=== PATIENT | male | born 1965 | race African-American/Black ===

== ENCOUNTER 2019-02-09 13:45 | Inpatient (IN) | payer OTHER, SELFPAY ==
[2019-02-09 14:31] LABS: #Lymphocytes 1.2 thou/uL (1.20-3.40); #Monocytes 0.4 thou/uL (0.11-0.59); #Neutrophils 4.5 thou/uL (1.40-6.50); %Basophils 0.7 % (0.0-1.0); %Eosinophils 0.7 % (0.0-10.0); %Lymphocytes 20.2 % (21.0-51.0); %Neutrophils 72.3 % (42.0-75.0); Hemoglobin 13.2 g/dL (14.0-18.0); Mean Corpuscular HGB CONC 32.1 g/dL (32.0-36.0); Mean Corpuscular Hemoglobin 31.8 pg (27.0-31.0); Mean Corpuscular Volume 99.1 fL (78.0-98.0); Platelet Count 179 thou/uL (130-400); RBC Distribution Width 13.2 % (11.5-14.5); Red Blood Cell (RBC) Count 4.15 mill/uL (4.70-6.10); White Blood Cell (WBC) Count 6.2 thou/uL (4.8-10.8)
[2019-02-09 14:51] LABS: ALT (SGPT) 30 U/L (8-55); AST (SGOT) 29 U/L (5-34); Albumin 3.8 g/dL (3.5-5.0); Alkaline Phosphatase 83 U/L (40-150); Anion Gap 12 mmol/L (10-20); BUN (Urea Nitrogen) 20 mg/dL (8.4-25.7); Bilirubin, Total 1.5 mg/dL (0.2-1.2); Calc. Creatinine Clearance 0 mL/min (70-130); Calcium 9.1 mg/dL (7.8-10.44); Carbon Dioxide 25 mmol/L (22-29); Chloride 108 mmol/L (98-107); Estimated GFR-MDRD 53; Globulin 3.4 g/dL (2.4-3.5); Glucose 134 mg/dL (70-105); Potassium 3.3 mmol/L (3.5-5.1); Protein, Total 7.2 g/dL (6.0-8.3); Sodium 142 mmol/L (136-145)
[2019-02-09 15:59] LABS: CKMB 4.6 ng/mL (0-6.6)
[2019-02-09] MEDS ORDERED: Aspirin 325 MG TAB ONE (16:02)
[2019-02-09] MEDS ORDERED: Ondansetron PF 4 MG/2 ML Vial IVP PRN (20:10)
[2019-02-09] MEDS ORDERED: Sodium Chloride 0.9% 1,000 ML IV SCH (20:45)
[2019-02-09] MEDS: Labetalol HCl 100 MG/20 ML VIAL SLOW IVP PRN (20:53)
[2019-02-09] MEDS: Famotidine 20 MG TAB PO SCH (20:55)
--- NOTE | 2019-02-09 22:28 | RAD ---
PORTABLE CHEST: 02/09/19 HISTORY: Decreased breath sounds right lower lobe. The heart size is enlarged. Mediastinal structures are unremarkable. The lungs appear clear of any de finite infiltrative process. IMPRESSION: Mild cardiomegaly. POS: OFF
--- NOTE | 2019-02-09 23:10 | CT ---
CT OF BRAIN PERFORMED WITHOUT CONTRAST ENHANCEMENT: 02/09/19 HISTORY: Syncope, dizziness, unsteady gait, hypertension. The ventricular and cisternal system is within normal limits. There is no signs of intracerebral hemo rrhage or extra-axial fluid collections. Mastoid air cells are clear. There is some mucosal change within the right sphenoid as well as some m inimal ethmoid and maxillary sinus mucosa change. IMPRESSION: No acute intracranial abnormalities. POS: OFF
[2019-02-10 00:10] LABS: Troponin I 0.068 ng/mL (< 0.028)
[2019-02-10] MEDS ORDERED: Furosemide 40 MG/4 ML VIAL SLOW IVP SCH (00:45)
[2019-02-10] MEDS: Nitroglycerin 2% Ointment 1 INCH/1 GM Packet TOP SCH ×3 (01:03→17:45)
--- NOTE | 2019-02-10 01:09 | HP ---
CHIEF COMPLAINT: Dizziness, near syncope, nausea and vomiting x1. HISTORY OF PRESENT ILLNESS: The patient is a pleasant 53-year-old male with no past medical history, who presented to the hospital with the above complaints after working outside for several hours. 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 This morning, he needed to drive to [employer] for some work, he did have four cups of coffee, which is unusual for him, and drove back to [facility] from [place] to continue working. After working outside for several hours, digging a grave and trying to set up a tent, the patient felt very dizzy and as if he might pass out. He states that he felt very wobbly on his feet. He became nauseated and did have an episode of emesis x1. He does also report that he feels somewhat short of breath. On arrival to the hospital, blood pressure was significantly elevated at a reading of 218/146. His pulse is 97. Lab work significant for creatinine of 1.66, bilirubin of 1.5, creatine kinase of 298, and troponin of 0.089. His EKG showed sinus rhythm with no acute ST or T-wave changes. The patient has denied any chest pain or palpitations. He is feeling improved after Zofran and IV fluid resuscitation, but states that he does feel dizzy when he stands up and has some continued shortness of breath. The patient does not have any medical history as he has not sought medical care or seen a doctor prior to this. REVIEW OF SYSTEMS: 12-point review of systems performed and is negative except that stated above. The patient denies any recent illnesses, cough, or fevers. No sick contacts. No diarrhea. No blood in urine or stool. ALLERGIES: NO KNOWN DRUG ALLERGIES. HOME MEDICATIONS: The patient takes no home medications. PAST SURGICAL HISTORY: The patient states that at one time, he had a small metal object removed from his leg after working with equipment out in the yard. Otherwise, no major surgeries. SOCIAL HISTORY: The patient smoked for 28 years and has been trying to wean down. He states he has not had a cigarette in 2 days. He denies any alcohol or illicit drug use. FAMILY HISTORY: Significant for a CVA in his brother. He states that his son of "enlarged heart." PHYSICAL EXAMINATION: VITAL SIGNS: Blood pressure 179/133, pulse is 90, respirations 20, and O2 saturation is 98% on room air. GENERAL: The patient is a well-appearing 53-year-old male, in no acute distress. HEENT: Head is atraumatic and normocephalic. Mucous membranes are moist. NECK: No JVD. Trachea is midline. CV: S1 and S2. Regular rate and rhythm. No appreciable murmurs, rubs, or gallops. LUNGS: Regular respiratory rate and pattern. Diminished breath sounds at the bases. ABDOMEN: Positive bowel sounds. Soft, nontender. EXTREMITIES: No edema. Extremities are warm and well perfused. NEUROLOGIC: Cranial nerves 2 through 12 are grossly intact. The patient has no focal deficits. LABORATORY DATA: White blood cell count 6.2, hemoglobin 13.2, hematocrit 41.1, and platelet count is 179. Sodium 142, potassium 3.3, chloride 108, BUN 20, and creatinine 1.66. AST, ALT, and alkaline phosphatase all within normal limits. Creatine kinase 298. Troponin 0.089. ASSESSMENT: 1. Near syncope with nausea and emesis x1, along with sob. Unclear etiology, differential includes mild dehydration, although certainly hypertension could be playing a role in some of his symptoms. 2. Acute kidney injury, secondary to above, although baseline creatinine is unknown. He does have untreated hypertension, mild anemia, which points towards chronic kidney disease. 3. Accelerated hypertension with demand ischemia/indeterminate troponin. 4. Shortness of breath, persistent, new onset 5. History tobacco abuse PLAN: The patient's chest x-ray did not show any infiltrates; however, he did have cardiomegaly noted. Given his near syncope and indeterminate troponin, we will obtain an echocardiogram along with carotid Dopplers. We will continue to trend troponin. His shortness of breath appears new onset and persistent; I have ordered both D-dimer and BNP which are pending at the time of dictation. We will repeat labs in the morning including a fasting lipid panel. Regarding the patient's hypertension, I have started nifedipine, and we will continue p.r.n. labetalol. Further recommendations based on findings of noninvasive testing and hospital course. Job ID: [id number] MTDD
[2019-02-10 01:44] LABS: Amphetamine Not Detected (NotDetected); Barbiturates Screen Not Detected (NotDetected); Benzodiazepine Screen Not Detected (NotDetected); Cocaine Metabolite Screen Not Detected (NotDetected); Medtox Reader # READER 4; Methadone Not Detected (NotDetected); Methamphetamine Not Detected (NotDetected); Opiate Screen Not Detected (NotDetected); Oxycodone Screen Not Detected (NotDetected); Phencyclidine (PCP) Not Detected (NotDetected); THC/Cannabinoid Screen Detected (NotDetected); Tricyclic Screen Not Detected (NotDetected)
[2019-02-10 01:45] LABS: Medtox Control Line Valid? VALID (VALID)
[2019-02-10] MEDS: Labetalol HCl 100 MG/20 ML VIAL SLOW IVP PRN ×2 (01:48→12:00)
[2019-02-10] MEDS ORDERED: Potassium Chloride 20 MEQ TAB PO SCH ×2 (02:00→23:30)
[2019-02-10 03:38] LABS: Troponin I 0.086 ng/mL (< 0.028)
[2019-02-10 03:50] LABS: Anion Gap 12 mmol/L (10-20); BUN (Urea Nitrogen) 21 mg/dL (8.4-25.7); Calc. Creatinine Clearance 97 mL/min (70-130); Calcium 8.9 mg/dL (7.8-10.44); Carbon Dioxide 22 mmol/L (22-29); Cardiac Risk 4.6 (Less than 4.5); Chloride 109 mmol/L (98-107); Cholesterol 133 mg/dl (< 200 Desired); Estimated GFR-MDRD 61; Glucose 134 mg/dL (70-105); HDL Cholesterol 29 mg/dL (>60 Neg Risk); LDL Cholesterol, Calculated 77 mg/dL; Potassium 3.2 mmol/L (3.5-5.1); Sodium 140 mmol/L (136-145); Triglycerides 135 mg/dL (Less than 150)
--- NOTE | 2019-02-10 03:52 | PDOC.EVN ---
Event Note - Event Note Event Note: BNP >2000, will start IV diuresis. D dimer 1.96, have also ordered CTA. Care discussed with Dr. Silver.
[2019-02-10] MEDS: Furosemide 40 MG/4 ML VIAL SLOW IVP SCH ×2 (05:46→14:48)
--- NOTE | 2019-02-10 07:39 | CT ---
PRELIMINARY REPORT/[facility]/EMERGENCY AFTER HOURS PROCEDURE EXAM: CT Angiography Chest With Contrast EXAM DATE/TIME: 02/10/2019 2:37 AM CLINICAL HISTORY: 53 years old, male; Dyspnea; Patient HX: Elevated d-dimer of 1.96, patient complains of SOB, no surgi rocio HX to chest. HTN. TECHNIQUE: Imaging protocol: Axial computed tomographic angiography images of the chest with intravenous contras t using CT angiography protocol. Coronal and sagittal reformatted images were created and reviewed. 3D rendering: MIP reconstructed images were created and reviewed. COMPARISON: No relevant prior studies available. FINDINGS: Pulmonary arteries: There is no evidence of peripheral filling defects within the pulmonary arterial circulation to suggest pulmonary embolism. Aorta: Unremarkable. No aortic aneurysm. No aortic dissection. Thyroid: The visualized thyroid gland is unremarkable. Lungs: Unremarkable. No consolidation. No masses. Pleural space: There are trace bilateral pleural effusions with dependent atelectasis. Heart: Unremarkable. No cardiomegaly. No pericardial effusion. Mediastinum: The trachea is normal. Kidneys and ureters: There is pericholecystic fluid and perinephric stranding which are incompletely evaluated on current exam. Lymph nodes: Unremarkable. No enlarged lymph nodes. Bones/joints: Unremarkable. No acute fracture. Soft tissues: Unremarkable. IMPRESSION: 1. There is no CT evidence of acute pulmonary embolism. 2. There is pericholecystic fluid and perinephric stranding which are incompletely evaluated on curre nt exam. Consider CT abdomen for further evaluation if clinically warranted. Thank you for allowing us to participate in the care of your patient. Dictated and Authenticated by: Hakeem Lopez MD 02/10/2019 3:17 AM Central Time ([place] & [place]) FINAL REPORT CTA CHEST: FINDINGS/IMPRESSION: I agree with the findings and impression given in the preliminary report, per [facility] physician. No evidence of pulmonary thromboembolism. POS: [facility] [place]
--- NOTE | 2019-02-10 07:57 | ULT ---
EXAM: Carotid ultrasound HISTORY: Syncope COMPARISON: None TECHNIQUE: Multiplanar grayscale and color Doppler images were obtained in a carotid ultrasound. Spec tral analysis of the Doppler waveforms were performed. FINDINGS: No significant plaque is visualized in either internal carotid artery. No significant plaque is seen in either common carotid artery. The Doppler waveforms are normal in the visualized vessels. Peak systolic velocity in the right internal carotid artery 31 cm/s. Peak systolic velocity in the right common carotid artery 52 cm/s. The right ICA/CCA ratio is 0.6. Peak systolic velocity in the left internal carotid artery 35 cm/s. Peak systolic velocity in the left common carotid artery 55 cm/s. The left ICA/CCA ratio is 0.6. Both vertebral arteries demonstrate antegrade flow without focal stenosis IMPRESSION: No evidence of hemodynamically significant stenosis.
[2019-02-10] MEDS: Potassium Chloride 20 MEQ TAB PO SCH ×2 (08:22→17:45)
[2019-02-10] MEDS: Famotidine 20 MG TAB PO SCH ×2 (08:23→20:34)
[2019-02-10] MEDS ORDERED: NIFEdipine XL 30 MG TAB PO SCH (09:00)
[2019-02-10] MEDS ORDERED: Enoxaparin Sodium 40 MG/0.4 ML SYRINGE SC SCH (09:00)
[2019-02-10] MEDS ORDERED: ISOVUE-370 76%-LOCM 1 ML ONE (10:16)
[2019-02-10] MEDS: Acetaminophen 325 MG TAB PO PRN ×2 (13:30→23:34)
--- NOTE | 2019-02-10 14:23 | PDOC.PN ---
- Subjective Encounter Start Date: 02/10/19 Encounter Start Time: 11:15 Subjective: Patient examined today, no overnight events -: Denies complaints - Objective Resuscitation Status - Order Detail: 02/09/19 20:10 Resuscitation Status Routine Co-Sign Provider: Resuscitation Status: FULL: Full Resuscitation Vital Signs & Weight: Vital Signs (12 hours) Temp Pulse Resp BP BP BP BP 02/10/19 13:36 88 22 H 183/130 H 02/10/19 12:26 179/120 H 02/10/19 12:00 88 185/115 H 02/10/19 11:43 97.7 F 88 18 183/130 H 02/10/19 08:22 80 02/10/19 07:13 97.5 F L 80 16 178/127 H 184/135 H 02/10/19 04:20 80 20 165/111 H BP Pulse Ox 02/10/19 13:36 02/10/19 12:26 02/10/19 12:00 02/10/19 11:43 96 02/10/19 08:22 02/10/19 07:13 175/125 H 98 02/10/19 04:20 97 Weight Weight 115.031 kg I&O: 02/09/19 02/10/19 02/11/19 06:59 06:59 06:59 Intake Total 250 Output Total 2475 Balance -2225 Result Diagrams: 02/09/19 14:12 02/10/19 03:05 Phys Exam - Physical Examination HEENT: PERRLA, moist MMs Neck: no nodes, no JVD, supple Respiratory: no wheezing, clear to auscultation bilateral scattered crackles in bases Cardiovascular: RRR Gastrointestinal: soft, non-tender Musculoskeletal: pulses present Neurological: non-focal, normal sensation, moves all 4 limbs Lymphatic: no nodes Psychiatric: normal affect, A&O x 3 Skin: no rash, cap refill <2 seconds Dx/Plan - Plan Awaiting ECHO results, BNP over 1999 -: Patient with HTN despite multiple medications -: Has not taken any HTN meds so we will work on slowly -: decreasing SBP, Carotid U/S neg for stenosis -: Will recheck labs, monitor BP * . Review of Systems - Medications/Allergies Allergies/Adverse Reactions: Allergies Allergy/AdvReac Type Severity Reaction Status Date / Time No Known Allergies Allergy Verified 02/09/19 19:43 Medications: Current Medications Acetaminophen (Tylenol) 650 mg PO Q4H PRN PRN Reason: Headache/Fever/Mild Pain (1-3) Last Admin: 02/10/19 13:30 Dose: 650 mg Famotidine (Pepcid) 20 mg PO BID [facility] Last Admin: 02/10/19 08:23 Dose: 20 mg Furosemide (Lasix) 40 mg SLOW IVP 0600,1400 [facility] Last Admin: 02/10/19 05:46 Dose: 40 mg Labetalol HCl (Normodyne) 20 mg SLOW IVP Q4H PRN PRN Reason: SBP > 180 and HR >/= 70 Last Admin: 02/10/19 12:00 Dose: 20 mg Nifedipine (Procardia Xl) 30 mg PO DAILY [facility] Last Admin: 02/10/19 08:22 Dose: 30 mg Nitroglycerin (Nitro-Bid 2% Ointment) 1 inch TOP 0200,1000,1800 [facility] Last Admin: 02/10/19 10:17 Dose: 1 inch Ondansetron HCl (Zofran) 4 mg IVP Q6H PRN PRN Reason: Nausea/Vomiting Potassium Chloride (K-Dur) 20 meq PO BID-[facility] Last Admin: 02/10/19 08:22 Dose: 20 meq
[2019-02-10] MEDS ORDERED: Carvedilol 6.25 MG TAB PO SCH (15:15)
[2019-02-10] MEDS: Carvedilol 6.25 MG TAB PO SCH (17:44)
[2019-02-10 21:55] LABS: Potassium 3.4 mmol/L (3.5-5.1)
[2019-02-11] MEDS: Nitroglycerin 2% Ointment 1 INCH/1 GM Packet TOP SCH ×3 (03:07→17:15)
[2019-02-11 05:19] LABS: Anion Gap 13 mmol/L (10-20); BUN (Urea Nitrogen) 19 mg/dL (8.4-25.7); Calc. Creatinine Clearance 91 mL/min (70-130); Calcium 8.8 mg/dL (7.8-10.44); Carbon Dioxide 26 mmol/L (22-29); Chloride 103 mmol/L (98-107); Estimated GFR-MDRD 62; Glucose 154 mg/dL (70-105); Potassium 3.4 mmol/L (3.5-5.1); Sodium 139 mmol/L (136-145)
[2019-02-11] MEDS: Furosemide 40 MG/4 ML VIAL SLOW IVP SCH ×2 (06:19→14:22)
[2019-02-11] MEDS: Famotidine 20 MG TAB PO SCH ×2 (08:22→20:56)
[2019-02-11] MEDS: Potassium Chloride 20 MEQ TAB PO SCH ×2 (08:22→17:15)
[2019-02-11] MEDS: Carvedilol 6.25 MG TAB PO SCH ×2 (08:22→17:14)
--- NOTE | 2019-02-11 11:20 | EKG ---
Test Reason : Blood Pressure : / mmHG Vent. Rate : 094 BPM Atrial Rate : 094 BPM P-R Int : 182 ms QRS Dur : 086 ms QT Int : 406 ms P-R-T Axes : 055 -36 076 degrees QTc Int : 507 ms Normal sinus rhythm with sinus arrhythmia Left atrial enlargement Left axis deviation Nonspecific T wave abnormality Prolonged QT Abnormal ECG Confirmed by ARPITA EDEN DO ([id number]), rewrite editor RICK ANDERSON ([id number]) on 02/11/2019 11:20:18 AM Referred By: Confirmed By:ARPITA EDEN DO
--- NOTE | 2019-02-11 11:29 | ULT ---
EXAM: Right upper quadrant ultrasound PROVIDED CLINICAL HISTORY: Right upper quadrant pain COMPARISON: None FINDINGS: Visualized portions of the pancreas, IVC and aorta appear normal. Liver demonstrates no mass or intra hepatic biliary ductal dilatation. Common duct is nondilated. Gallbladder demonstrates no stones, wall thickening or pericholecystic fluid. Kidneys demonstrate no hydronephrosis or solid mass. Spleen is not enlarged and demonstrates no focal abnormality. IMPRESSION: Unremarkable right upper quadrant ultrasound.
[2019-02-11] MEDS: Acetaminophen 325 MG TAB PO PRN (14:22)
--- NOTE | 2019-02-11 15:12 | PDOC.PN ---
- Subjective Encounter Start Date: 02/11/19 Encounter Start Time: 11:00 Subjective: Examined patient, denies any new complaints - Objective Resuscitation Status - Order Detail: 02/09/19 20:10 Resuscitation Status Routine Co-Sign Provider: Resuscitation Status: FULL: Full Resuscitation Vital Signs & Weight: Vital Signs (12 hours) Temp Pulse Resp BP Pulse Ox 02/11/19 11:20 97.9 F 88 20 173/119 H 98 02/11/19 07:22 98.3 F 89 20 169/115 H 97 02/11/19 03:07 98.7 F 87 16 142/104 H 96 Weight Weight 106.957 kg I&O: 02/10/19 02/11/19 02/12/19 06:59 06:59 06:59 Intake Total 250 524 Output Total 2779 3739 Balance -4632 -7995 Result Diagrams: 02/09/19 14:12 02/11/19 04:30 Phys Exam - Physical Examination HEENT: PERRLA, moist MMs Neck: no nodes, no JVD Respiratory: no wheezing Cardiovascular: RRR, no significant murmur Gastrointestinal: soft, non-tender Musculoskeletal: pulses present Neurological: non-focal, normal sensation Lymphatic: no nodes Psychiatric: normal affect, A&O x 3 Skin: cap refill <2 seconds Dx/Plan (1) New onset of congestive heart failure Code(s): I50.9 - HEART FAILURE, UNSPECIFIED Status: Acute (2) Hypertension Code(s): I10 - ESSENTIAL (PRIMARY) HYPERTENSION Status: Acute (3) Syncope Code(s): R55 - SYNCOPE AND COLLAPSE Status: Acute (4) Acute kidney failure Status: Acute (5) Hypokalemia Code(s): E87.6 - HYPOKALEMIA Status: Acute - Plan cont current plan of care Cardiology consult, Echo with EF 10-15% -: Education given on HF, asked nurses to give patient binder -: ESSIE has improved, patient is on KCL supplements -: Will continue to monitor, recheck labs in AM * . Review of Systems - Review of Systems Constitutional: malaise - Medications/Allergies Allergies/Adverse Reactions: Allergies Allergy/AdvReac Type Severity Reaction Status Date / Time No Known Allergies Allergy Verified 02/09/19 19:43 Medications: Current Medications Acetaminophen (Tylenol) 650 mg PO Q4H PRN PRN Reason: Headache/Fever/Mild Pain (1-3) Last Admin: 02/11/19 14:22 Dose: 650 mg Carvedilol (Coreg) 6.25 mg PO BID-[facility] Last Admin: 02/11/19 08:22 Dose: 6.25 mg Famotidine (Pepcid) 20 mg PO BID [facility] Last Admin: 02/11/19 08:22 Dose: 20 mg Furosemide (Lasix) 40 mg SLOW IVP 0600,1400 [facility] Last Admin: 02/11/19 14:22 Dose: 40 mg Labetalol HCl (Normodyne) 20 mg SLOW IVP Q4H PRN PRN Reason: SBP > 180 and HR >/= 70 Last Admin: 02/10/19 12:00 Dose: 20 mg Nitroglycerin (Nitro-Bid 2% Ointment) 1 inch TOP 0200,1000,1800 [facility] Last Admin: 02/11/19 10:51 Dose: 1 inch Ondansetron HCl (Zofran) 4 mg IVP Q6H PRN PRN Reason: Nausea/Vomiting Potassium Chloride (K-Dur) 20 meq PO BID-[facility] Last Admin: 02/11/19 08:22 Dose: 20 meq
[2019-02-11] MEDS ORDERED: Carvedilol 6.25 MG TAB PO SCH (18:45)
--- NOTE | 2019-02-11 19:36 | CON ---
DATE OF CONSULTATION: HISTORY OF PRESENT ILLNESS: Mo Bunch is a pleasant 53-year-old black male with essentially no prior medical history, who presented to the hospital after working outside for several hours with dizziness and near syncope. He never had a true syncopal episode, but felt extremely weak and felt as if he would fall. He did have nausea and vomiting x1. He denied any chest discomfort or shortness of breath with that. He does give a history of episodes of PND over the last month and mild peripheral edema. Also, 2 to 3 months ago, he had a very severe upper respiratory infection that most of the people in his family also caught and he was sick with that for a long period of time. His blood pressure had been quite elevated since being here, and he has been diuresed and placed on carvedilol. PAST MEDICAL HISTORY: He denies any history of hypertension, diabetes, or hypercholesterolemia. MEDICATIONS: None. ALLERGIES: NONE. PAST SURGICAL HISTORY: Removal of metal object from his leg after working with equipment in the yard. SOCIAL HISTORY: He smoked for 28 years, but he has continued to try to wean down, and he has not smoked for 4 to 5 days. He denies any alcohol or illicit drug use. FAMILY HISTORY: Son of "an enlarged heart". REVIEW OF SYSTEMS: Twelve-point review of systems is otherwise unremarkable. PHYSICAL EXAMINATION: VITAL SIGNS: Blood pressure 169/113, pulse of 94 (this is after 24 hours of carvedilol 6.25 b.i.d.). HEENT: PERRL. NECK: Supple. CHEST: Clear. CARDIAC: S1 and S2 are normal without any S3, S4, or murmurs. ABDOMEN: Normal bowel sounds without tenderness. EXTREMITIES: Revealed no clubbing, cyanosis, or edema. NEUROLOGIC: Grossly intact. SKIN: Warm and dry. LABORATORY DATA: EKG revealed left atrial enlargement, left axis deviation, nonspecific T-wave changes. His only arrhythmia is 1 triplet at 150 per minute. Echocardiogram revealed moderate concentric left ventricular hypertrophy, severe left ventricular dysfunction with ejection fraction of 10% to 15%, mild right ventricular enlargement, moderate left atrial enlargement, moderate mitral regurgitation, moderate to severe tricuspid regurgitation, and moderate pulmonic regurgitation. Hemoglobin 13.2, hematocrit 41.1, white count 6200, platelets 179,000. D-dimer 1.96. Sodium 139, potassium 3.4, chloride 103, carbon dioxide 26, BUN 19, creatinine 1.46. Troponin I 0.089. BNP 2037.3. Cholesterol 133, triglycerides 135, HDL 29, LDL 77. CK 298. CK-MB 4.6. IMPRESSION: 1. Severe cardiomyopathy with ejection fraction 10% to 15%. He does have left ventricular hypertrophy. However, he states in the past his blood pressure has always been low. He did have a severe upper respiratory infection 2 to 3 months ago and this certainly may represent a viral cardiomyopathy. 2. Renal insufficiency. 3. Hypertension. 4. Smoker. PLAN: His blood pressure continues to be significantly elevated, and carvedilol will be increased to 12.5 mg b.i.d. I will avoid BRETT and ARB drugs with his renal insufficiency, and instead BiDil would probably be a better alternative for better blood pressure control. He will continue to be diuresed and consideration will be given to cardiac catheterization in the next 2 to 3 days to exclude coronary artery disease as an etiology of his cardiomyopathy. Also, consideration will be given to LifeVest at the time of discharge. Job ID: [id number] [facility] HEALTH SYSTEMNkechi
[2019-02-12] MEDS: Nitroglycerin 2% Ointment 1 INCH/1 GM Packet TOP SCH ×2 (01:55→10:02)
[2019-02-12] MEDS: Acetaminophen 325 MG TAB PO PRN (01:56)
[2019-02-12] MEDS: Furosemide 40 MG/4 ML VIAL SLOW IVP SCH ×2 (05:13→13:10)
[2019-02-12 05:29] LABS: Anion Gap 14 mmol/L (10-20); BUN (Urea Nitrogen) 23 mg/dL (8.4-25.7); Calc. Creatinine Clearance 95 mL/min (70-130); Calcium 8.8 mg/dL (7.8-10.44); Carbon Dioxide 24 mmol/L (22-29); Chloride 104 mmol/L (98-107); Estimated GFR-MDRD 64; Glucose 118 mg/dL (70-105); Potassium 3.5 mmol/L (3.5-5.1); Sodium 138 mmol/L (136-145)
[2019-02-12] MEDS ORDERED: Sodium Chloride 0.9% 10 ML ONE (08:17)
[2019-02-12] MEDS: Carvedilol 6.25 MG TAB PO SCH ×2 (08:27→16:18)
[2019-02-12] MEDS: Famotidine 20 MG TAB PO SCH ×2 (08:27→20:01)
[2019-02-12] MEDS: Potassium Chloride 20 MEQ TAB PO SCH ×2 (08:27→16:18)
--- NOTE | 2019-02-12 13:31 | PDOC.PN ---
- Subjective Encounter Start Date: 02/12/19 Encounter Start Time: 10:30 Subjective: Patient examined, denies new complaints. - Objective Resuscitation Status - Order Detail: 02/09/19 20:10 Resuscitation Status Routine Co-Sign Provider: Resuscitation Status: FULL: Full Resuscitation Vital Signs & Weight: Vital Signs (12 hours) Temp Pulse Resp BP BP BP BP 02/12/19 12:25 97.9 F 84 17 173/106 H 02/12/19 10:01 166/97 H 02/12/19 09:15 168/98 H 02/12/19 08:27 162/115 H 02/12/19 08:20 98.2 F 84 17 162/115 H 02/12/19 03:39 98.8 F 88 18 163/101 H Pulse Ox 02/12/19 12:25 98 02/12/19 10:01 02/12/19 09:15 02/12/19 08:27 02/12/19 08:20 97 02/12/19 03:39 98 Weight Weight 109.061 kg I&O: 02/11/19 02/12/19 02/13/19 06:59 06:59 06:59 Intake Total 524 Output Total 4100 550 Balance -3576 -550 Result Diagrams: 02/09/19 14:12 02/12/19 04:44 Phys Exam - Physical Examination HEENT: PERRLA, moist MMs Neck: no nodes, no JVD Respiratory: clear to auscultation bilateral Cardiovascular: RRR Gastrointestinal: soft, non-tender Musculoskeletal: no edema Neurological: non-focal, normal sensation Lymphatic: no nodes Psychiatric: normal affect, A&O x 3 Skin: cap refill <2 seconds Dx/Plan (1) New onset of congestive heart failure Code(s): I50.9 - HEART FAILURE, UNSPECIFIED Status: Acute (2) Hypertension Code(s): I10 - ESSENTIAL (PRIMARY) HYPERTENSION Status: Acute (3) Syncope Code(s): R55 - SYNCOPE AND COLLAPSE Status: Acute (4) Acute kidney failure Status: Acute (5) Hypokalemia Code(s): E87.6 - HYPOKALEMIA Status: Acute - Plan Patient is scheduled for a heart cath tomorrow -: Discussion within Dr. Bray's note about a lifevest -: Will continue to monitor, will recheck renal function in am * .
[2019-02-12] MEDS: Isosorbide Dinitrate 20 MG TAB PO SCH (17:30)
[2019-02-12] MEDS: hydrALAZINE 25 MG TAB PO SCH (17:30)
[2019-02-13] MEDS: Furosemide 40 MG/4 ML VIAL SLOW IVP SCH ×2 (05:32→13:06)
[2019-02-13 05:52] LABS: Anion Gap 14 mmol/L (10-20); BUN (Urea Nitrogen) 27 mg/dL (8.4-25.7); Calc. Creatinine Clearance 86 mL/min (70-130); Calcium 9.5 mg/dL (7.8-10.44); Carbon Dioxide 27 mmol/L (22-29); Chloride 102 mmol/L (98-107); Estimated GFR-MDRD 57; Glucose 107 mg/dL (70-105); Potassium 3.6 mmol/L (3.5-5.1); Sodium 139 mmol/L (136-145)
[2019-02-13] MEDS: Isosorbide Dinitrate 20 MG TAB PO SCH ×2 (08:23→21:11)
[2019-02-13] MEDS: Potassium Chloride 20 MEQ TAB PO SCH ×2 (08:23→16:10)
[2019-02-13] MEDS: Carvedilol 6.25 MG TAB PO SCH ×2 (08:23→16:10)
[2019-02-13] MEDS: hydrALAZINE 25 MG TAB PO SCH ×2 (08:24→21:12)
[2019-02-13] MEDS: Famotidine 20 MG TAB PO SCH ×2 (08:24→21:11)
--- NOTE | 2019-02-13 10:14 | PDOC.PN ---
- Subjective Encounter Start Date: 02/13/19 Encounter Start Time: 12:10 Subjective: Patient without chest pain. SOB improved. LE edema resolved. - Objective Resuscitation Status - Order Detail: 02/09/19 20:10 Resuscitation Status Routine Co-Sign Provider: Resuscitation Status: FULL: Full Resuscitation MAR Reviewed: Yes Vital Signs & Weight: Vital Signs (12 hours) Temp Pulse Resp BP BP Pulse Ox 02/13/19 08:17 98.2 F 74 16 171/111 H 98 02/13/19 03:40 98.3 F 83 22 H 167/104 H 94 L 02/12/19 23:50 98.4 F 87 24 H 158/95 H 97 Weight Weight 240 lb 7 oz I&O: 02/12/19 02/13/19 02/14/19 06:59 06:59 06:59 Intake Total 1740 Output Total 550 2560 Balance -550 -820 Result Diagrams: 02/09/19 14:12 02/13/19 04:53 Phys Exam - Physical Examination Constitutional: NAD HEENT: moist MMs Respiratory: no wheezing, no rales, no rhonchi Cardiovascular: RRR Gastrointestinal: soft, positive bowel sounds Musculoskeletal: no edema Neurological: non-focal, moves all 4 limbs Psychiatric: normal affect, A&O x 3 Dx/Plan (1) Acute systolic (congestive) heart failure Code(s): I50.21 - ACUTE SYSTOLIC (CONGESTIVE) HEART FAILURE Status: Acute Comment: EF 10-15%, moderate concentric ventricular hypertrophy, diuresing, cardiac cath planned, may need LifeVest at discharge (2) Hypertension Code(s): I10 - ESSENTIAL (PRIMARY) HYPERTENSION Status: Acute (3) Syncope Code(s): R55 - SYNCOPE AND COLLAPSE Status: Resolved (4) Hypokalemia Code(s): E87.6 - HYPOKALEMIA Status: Resolved (5) Kidney failure Status: Acute Qualifiers: Renal failure chronicity: unspecified chronicity Qualified Code(s): N19 - Unspecified kidney failure Comment: unknown baseline, stable with diuresis - Plan cont current plan of care, out of bed/ambulate, DVT proph w/SCDs likely cath tomorrow * . - Discharge Day Encounter end time: 12:20
[2019-02-13] MEDS ORDERED: Carvedilol 6.25 MG TAB PO SCH (21:00)
[2019-02-14 07:05] LABS: Anion Gap 12 mmol/L (10-20); BUN (Urea Nitrogen) 27 mg/dL (8.4-25.7); Calc. Creatinine Clearance 82 mL/min (70-130); Calcium 9.5 mg/dL (7.8-10.44); Carbon Dioxide 28 mmol/L (22-29); Chloride 102 mmol/L (98-107); Estimated GFR-MDRD 54; Glucose 118 mg/dL (70-105); Potassium 3.6 mmol/L (3.5-5.1); Sodium 138 mmol/L (136-145)
[2019-02-14] MEDS ORDERED: Communication Order-Pharmacy FS SCH (08:30)
[2019-02-14] MEDS: Furosemide 40 MG TAB PO SCH (08:53)
[2019-02-14] MEDS: Potassium Chloride 20 MEQ TAB PO SCH ×2 (08:53→16:47)
[2019-02-14] MEDS: Famotidine 20 MG TAB PO SCH ×2 (08:53→21:58)
[2019-02-14] MEDS: Isosorbide Dinitrate 20 MG TAB PO SCH ×2 (08:53→21:58)
--- NOTE | 2019-02-14 08:53 | PDOC.PN ---
- Subjective Encounter Start Date: 02/14/19 Encounter Start Time: 12:30 Subjective: Patient with no chest pain or SOB. No edema. BP still high today. - Objective Resuscitation Status - Order Detail: 02/09/19 20:10 Resuscitation Status Routine Co-Sign Provider: Resuscitation Status: FULL: Full Resuscitation MAR Reviewed: Yes Vital Signs & Weight: Vital Signs (12 hours) Temp Pulse Resp BP BP Pulse Ox 02/14/19 03:45 98 F 77 16 156/103 H 98 02/13/19 21:18 162/114 H 02/13/19 21:12 85 162/114 H Weight Weight 240 lb 7 oz I&O: 02/13/19 02/14/19 02/15/19 06:59 06:59 06:59 Intake Total 1740 1490 Output Total 2560 1775 Balance -820 -285 Result Diagrams: 02/09/19 14:12 02/14/19 06:19 Phys Exam - Physical Examination Constitutional: NAD HEENT: moist MMs Respiratory: no wheezing, no rales, no rhonchi Cardiovascular: RRR, no significant murmur Gastrointestinal: soft, positive bowel sounds Musculoskeletal: no edema Neurological: non-focal, moves all 4 limbs Psychiatric: normal affect, A&O x 3 Dx/Plan (1) Acute systolic (congestive) heart failure Code(s): I50.21 - ACUTE SYSTOLIC (CONGESTIVE) HEART FAILURE Status: Acute Comment: EF 10-15%, moderate concentric ventricular hypertrophy, diuresing, cardiac cath planned, may need LifeVest at discharge (2) Hypertension Code(s): I10 - ESSENTIAL (PRIMARY) HYPERTENSION Status: Acute Qualifiers: Hypertension type: essential hypertension Qualified Code(s): I10 - Essential (primary) hypertension Comment: uncontrolled, titrating up BP meds (3) Syncope Code(s): R55 - SYNCOPE AND COLLAPSE Status: Resolved (4) Hypokalemia Code(s): E87.6 - HYPOKALEMIA Status: Resolved (5) Kidney failure Status: Acute Qualifiers: Renal failure chronicity: unspecified chronicity Qualified Code(s): N19 - Unspecified kidney failure Comment: unknown baseline, bumped a bit so transitioning to oral diuretics - Plan cont current plan of care, DVT proph w/SCDs possibly cath tomorrow * . - Discharge Day Encounter end time: 12:40
[2019-02-14] MEDS: Sodium Chloride 0.9% 1,000 ML IV SCH ×2 (08:59→18:33)
[2019-02-14] MEDS: hydrALAZINE 25 MG TAB PO SCH ×2 (10:25→21:57)
[2019-02-14] MEDS: Carvedilol 25 MG TAB PO SCH (16:47)
[2019-02-15] MEDS: Sodium Chloride 0.9% 1,000 ML IV SCH (05:14)
[2019-02-15] MEDS: Carvedilol 25 MG TAB PO SCH ×4 (05:20→20:03)
[2019-02-15] MEDS: Isosorbide Dinitrate 20 MG TAB PO SCH ×3 (05:21→20:04)
[2019-02-15] MEDS: Potassium Chloride 20 MEQ TAB PO SCH ×2 (05:21→18:33)
[2019-02-15] MEDS: Famotidine 20 MG TAB PO SCH ×2 (05:22→20:04)
[2019-02-15] MEDS: hydrALAZINE 25 MG TAB PO SCH ×2 (05:22→20:03)
[2019-02-15 05:59] LABS: Anion Gap 13 mmol/L (10-20); BUN (Urea Nitrogen) 24 mg/dL (8.4-25.7); Calc. Creatinine Clearance 88 mL/min (70-130); Calcium 9.3 mg/dL (7.8-10.44); Carbon Dioxide 24 mmol/L (22-29); Chloride 105 mmol/L (98-107); Estimated GFR-MDRD 58; Glucose 108 mg/dL (70-105); Potassium 3.9 mmol/L (3.5-5.1); Sodium 138 mmol/L (136-145)
[2019-02-15] MEDS ORDERED: Heparin 10,000 UNITS/1 ML VIAL ONE (06:26)
[2019-02-15] MEDS ORDERED: Lidocaine 1% (PF) 30 ML VIAL ONE (06:40)
[2019-02-15] MEDS ORDERED: Fentanyl 100 MCG/2 ML VIAL ONE (07:06)
[2019-02-15] MEDS ORDERED: Midazolam HCl 2 mg/2 ml Vial ONE (07:06)
[2019-02-15] MEDS ORDERED: Protamine Sulfate 50 MG/5 ML VIAL ONE (07:26)
[2019-02-15] MEDS ORDERED: Acetaminophen/Codeine 30-300mg Tablet PO PRN ×2 (07:41)
[2019-02-15] MEDS ORDERED: Nitroglycerin 0.4 MG TAB (25 Tab Bottle) SL PRN (07:41)
[2019-02-15] MEDS ORDERED: Sodium Chloride 0.9% 200 ML IV PRN (07:41)
[2019-02-15] MEDS ORDERED: Sodium Chloride 0.9% 1,000 ML IV SCH (07:42)
--- NOTE | 2019-02-15 07:58 | PDOC.PN ---
- Subjective Encounter Start Date: 02/15/19 Encounter Start Time: 10:00 Subjective: Patient had cath this AM, minimal CAD. Sleepy post procedure. BP up today. -: New BP meds added. No CP/SOB/edema. - Objective Resuscitation Status - Order Detail: 02/09/19 20:10 Resuscitation Status Routine Co-Sign Provider: Resuscitation Status: FULL: Full Resuscitation MAR Reviewed: Yes Vital Signs & Weight: Vital Signs (12 hours) Temp Pulse Resp BP BP BP Pulse Ox 02/15/19 05:22 86 170/102 H 02/15/19 03:38 98.4 F 86 18 159/103 H 99 02/15/19 00:00 89 140/91 H 02/14/19 21:57 90 166/114 H 02/14/19 21:55 98 F 90 18 166/114 H 98 Weight Weight 240 lb 7 oz I&O: 02/14/19 02/15/19 02/16/19 06:59 06:59 06:59 Intake Total 1490 830 Output Total 1775 1100 Balance -285 -270 Result Diagrams: 02/09/19 14:12 02/15/19 05:20 Phys Exam - Physical Examination Constitutional: NAD HEENT: moist MMs Respiratory: no wheezing, no rales, no rhonchi, clear to auscultation bilateral Cardiovascular: RRR, no significant murmur Gastrointestinal: soft, non-tender, positive bowel sounds Musculoskeletal: no edema Neurological: non-focal Psychiatric: normal affect, A&O x 3 Dx/Plan (1) Acute systolic (congestive) heart failure Code(s): I50.21 - ACUTE SYSTOLIC (CONGESTIVE) HEART FAILURE Status: Acute Comment: EF 10-15%, moderate concentric ventricular hypertrophy, diuresing, cardiac cath showing minimal CAD, due to non-ischemic cardiomyopathy, may need LifeVest at discharge (2) Hypertension Code(s): I10 - ESSENTIAL (PRIMARY) HYPERTENSION Status: Acute Qualifiers: Hypertension type: essential hypertension Qualified Code(s): I10 - Essential (primary) hypertension Comment: uncontrolled, titrating up BP meds (3) Syncope Code(s): R55 - SYNCOPE AND COLLAPSE Status: Resolved (4) Hypokalemia Code(s): E87.6 - HYPOKALEMIA Status: Resolved (5) Kidney failure Status: Acute Qualifiers: Renal failure chronicity: unspecified chronicity Qualified Code(s): N19 - Unspecified kidney failure Comment: stable, unknown baseline - Plan cont current plan of care, DVT proph w/SCDs titrate BP meds, Carvediolol added, home when ok with cardiology * . - Discharge Day Encounter end time: 10:10
[2019-02-15] MEDS: Furosemide 40 MG TAB PO SCH (13:29)
[2019-02-15] MEDS: Aspirin 81 mg Enteric Coated Tablet PO SCH (13:29)
[2019-02-15] MEDS ORDERED: Atorvastatin Calcium 10 MG TAB PO SCH (21:00)
[2019-02-16 06:36] LABS: Anion Gap 11 mmol/L (10-20); BUN (Urea Nitrogen) 21 mg/dL (8.4-25.7); Calc. Creatinine Clearance 100 mL/min (70-130); Calcium 9.1 mg/dL (7.8-10.44); Carbon Dioxide 25 mmol/L (22-29); Chloride 105 mmol/L (98-107); Estimated GFR-MDRD 69; Glucose 114 mg/dL (70-105); Potassium 4.2 mmol/L (3.5-5.1); Sodium 137 mmol/L (136-145)
[2019-02-16] MEDS: Isosorbide Dinitrate 20 MG TAB PO SCH (08:19)
[2019-02-16] MEDS: Potassium Chloride 20 MEQ TAB PO SCH ×2 (08:19→17:07)
[2019-02-16] MEDS: Aspirin 81 mg Enteric Coated Tablet PO SCH (08:19)
[2019-02-16] MEDS: Furosemide 40 MG TAB PO SCH (08:19)
[2019-02-16] MEDS: hydrALAZINE 25 MG TAB PO SCH (08:19)
[2019-02-16] MEDS: Carvedilol 25 MG TAB PO SCH (08:19)
[2019-02-16] MEDS: Famotidine 20 MG TAB PO SCH (08:20)
--- NOTE | 2019-02-16 08:41 | PDOC.PN ---
- Subjective Encounter Start Date: 02/16/19 Encounter Start Time: 10:10 Subjective: Patient feeling fine. No CP. No SOB. No edema. - Objective Resuscitation Status - Order Detail: 02/09/19 20:10 Resuscitation Status Routine Co-Sign Provider: Resuscitation Status: FULL: Full Resuscitation MAR Reviewed: Yes Vital Signs & Weight: Vital Signs (12 hours) Temp Pulse Resp BP BP Pulse Ox 02/16/19 08:19 82 02/16/19 08:17 98.8 F 82 18 160/113 H 98 02/16/19 04:00 98.4 F 85 19 153/94 H 99 Weight Weight 236 lb 3.2 oz I&O: 02/15/19 02/16/19 02/17/19 06:59 06:59 06:59 Intake Total 830 1330 Output Total 1100 1800 Balance -270 -470 Result Diagrams: 02/09/19 14:12 02/16/19 05:34 Phys Exam - Physical Examination Constitutional: NAD HEENT: moist MMs Respiratory: no wheezing, no rales, no rhonchi, clear to auscultation bilateral Cardiovascular: RRR, no significant murmur Gastrointestinal: soft, non-tender, positive bowel sounds Musculoskeletal: no edema Neurological: non-focal, moves all 4 limbs Psychiatric: normal affect, A&O x 3 Dx/Plan (1) Acute systolic (congestive) heart failure Code(s): I50.21 - ACUTE SYSTOLIC (CONGESTIVE) HEART FAILURE Status: Acute Comment: EF 10-15%, moderate concentric ventricular hypertrophy, diuresing, cardiac cath showing minimal CAD, due to non-ischemic cardiomyopathy, needs LifeVest at discharge (2) Hypertension Code(s): I10 - ESSENTIAL (PRIMARY) HYPERTENSION Status: Acute Qualifiers: Hypertension type: essential hypertension Qualified Code(s): I10 - Essential (primary) hypertension Comment: uncontrolled, titrating up BP meds (3) Syncope Code(s): R55 - SYNCOPE AND COLLAPSE Status: Resolved (4) Hypokalemia Code(s): E87.6 - HYPOKALEMIA Status: Resolved (5) Kidney failure Status: Acute Qualifiers: Renal failure chronicity: unspecified chronicity Qualified Code(s): N19 - Unspecified kidney failure Comment: improving, unknown baseline - Plan cont current plan of care spoke with Dr. Bray, will increase Carvedilol and if BP improves -: later today can be discharged with LifeVest. * . - Discharge Day Encounter end time: 10:30
[2019-02-16] MEDS ORDERED: Carvedilol 25 MG TAB PO SCH ×2 (10:15→17:00)
[2019-02-16 11:48] VITALS: BP 140/94; TEMP 97.6
--- NOTE | 2019-02-17 05:24 | DIS ---
DATE OF ADMISSION: 02/09/2019 DATE OF DISCHARGE: 02/16/2019 PRIMARY CARE PHYSICIAN: Kena Lucero. REASON FOR ADMISSION: Near-syncope with acute kidney injury and accelerated hypertension. DIAGNOSES AT DISCHARGE: 1. Acute systolic congestive heart failure with an ejection fraction of 10% to 15%. 2. Hypertension. 3. Acute on chronic kidney failure, improved. PROCEDURES: 1. CT of the brain showing no acute intracranial abnormalities. 2. CT of the chest and thorax showing no evidence for pulmonary thromboembolism. 3. Echocardiogram showing an ejection fraction of 10% to 15%, moderate concentric left ventricular hypertrophy, moderate to severe tricuspid regurgitation. 4. Ultrasound of the abdomen showing an unremarkable right upper quadrant ultrasound. 5. Carotid doppler showing no evidence for hemodynamically significant stenosis. 6. Cardiac catheterization showing minimal coronary artery disease and severe nonischemic cardiomyopathy. CONSULTATIONS: Cardiology, Dr. Bray. SUMMARY OF HOSPITAL COURSE: This is a 53-year-old male without significant past medical history and has never gone to a doctor. He presented to the hospital with dizziness, near syncope, nausea, and vomiting x1 after working outside in the heat for several hours. 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 The patient was found to have severely elevated blood pressures on presentation to the ER. Also had elevated creatinine, mild elevation of bilirubin, and elevated creatine kinase. EKG was negative. He was evaluated in the emergency room and put in observation due to his near-syncope and severely elevated blood pressures. At that time, a D-dimer and BNP were done. BNP was severely elevated and the D-dimer was elevated as well. He had a CT angio with above results. The patient was given IV Lasix for diuresis and also instituted on multiple blood pressure medications. Echocardiogram was ordered, which showed above results. Dr. Bray was consulted. He continued diuresis, continued to titrating up blood pressure medicines. He then did do a cardiac catheterization to rule out coronary artery disease as a cause of the congestive heart failure. The patient's coronaries were relatively clean. Most likely, the patient's CHF is due to a long-standing hypertension or viral etiology. Eventually, his blood pressure was controlled. He was diuresed to a good dry weight and then switched over to oral Lasix. His creatinine did improve during his hospitalization. The patient did not have any further symptoms during his hospitalization and what he did was fitted with a LifeVest prior to discharge and is now being discharged home. Of note, the patient did have elevated bilirubin and so he had a right upper quadrant ultrasound that was normal as well. DISCHARGE MANAGEMENT: 1. Location: Discharged home. 2. Followup: Follow up with [facility] on February 20, with Dr. Bray on March 15 and with the [facility], outpatient. 3. Activity: As tolerated. The patient is to stay out of work until cleared by Cardiology to return and to wear his LifeVest at all times. 4. Diet: Fluid-restricted healthy heart, low-sodium diet. 5. Medications: a. Aspirin 81 mg daily, 30 tablets dispensed. b. Atorvastatin 10 mg at night, 30 tablets dispensed. c. Carvedilol 50 mg twice a day, 60 doses dispensed. d. Furosemide 40 mg daily, 30 tablets dispensed. e. Hydralazine 75 mg twice a day, 60 tablets dispensed. f. Isosorbide dinitrate 40 mg twice a day, 60 tablets dispensed. g. Potassium chloride 10 mEq daily, 30 caps dispensed. The patient was not considered on an BRETT inhibitor due to his renal failure. This can be reassessed in the future to see if he would tolerate it. Job ID: [id number]
== END 2019-02-16 18:10 | disposition home or self-care (01) | DRG 286 ==
LOC: ERS 13:45 → 2SW 17:48 → OBSVTOIN 17:48 → 2NO 02-11 19:38
PROVIDERS: ADMIT Internal Medicine; ATTEND Internal Medicine
PROC: 4A023N7 Measurement of Cardiac Sampling and Pressure, Left Heart, Percutaneous Approach (ICD-10-PCS; principal; 2019-02-14)
PROC: B211YZZ Fluoroscopy of Multiple Coronary Arteries using Other Contrast (ICD-10-PCS; 2019-02-14)
DX: I13.0 Hypertensive heart and chronic kidney disease with heart failure and stage 1 through stage 4 chronic kidney disease, or unspecified chronic kidney disease (principal); I50.21 Acute systolic (congestive) heart failure; N17.9 Acute kidney failure, unspecified; I24.8 Other forms of acute ischemic heart disease; I42.9 Cardiomyopathy, unspecified; I25.10 Atherosclerotic heart disease of native coronary artery without angina pectoris; E87.6 Hypokalemia; N18.9 Chronic kidney disease, unspecified; E78.00 Pure hypercholesterolemia, unspecified; E11.22 Type 2 diabetes mellitus with diabetic chronic kidney disease; F17.210 Nicotine dependence, cigarettes, uncomplicated; E86.0 Dehydration
CPT/HCPCS: 36415; 70450; 71045; 71275; 76700; 80048; 80053; 80061; 80306; 82550; 82553; 83690; 83735; 83880; 84484; 85025; 85347; 85379; 93005; 93306; 93458; 93798; 93880; 96360; 96361; 99152; 99153; C1769; J1644; J1940; J2001; J2250; J2720; J3010; Q9966

== ENCOUNTER 2019-04-26 05:32 | Inpatient (IN) | payer SELFPAY ==
[2019-04-26] MEDS ORDERED: niCARdipine 20MG In NaCl 20 MG/200 ML BAG ONE ×2 (06:08→08:05)
[2019-04-26 06:21] LABS: #Eosinphils 0.1 thou/uL (0.0-0.7); #Monocytes 0.6 thou/uL (0.11-0.59); #Neutrophils 2.3 thou/uL (1.40-6.50); %Basophils 0.2 % (0.0-1.0); %Eosinophils 1.7 % (0.0-10.0); %Lymphocytes 39.7 % (21.0-51.0); %Monocytes 11.3 % (0.0-10.0); Hemoglobin 14.6 g/dL (14.0-18.0); Mean Corpuscular HGB CONC 31.9 g/dL (32.0-36.0); Mean Corpuscular Hemoglobin 30.5 pg (27.0-31.0); Mean Corpuscular Volume 95.5 fL (78.0-98.0); Mean Platelet Volume 7.8 fL (7.4-10.4); Platelet Count 184 thou/uL (130-400); RBC Distribution Width 12.1 % (11.5-14.5); Red Blood Cell (RBC) Count 4.79 mill/uL (4.70-6.10)
[2019-04-26 06:47] LABS: ALT (SGPT) 19 U/L (8-55); AST (SGOT) 23 U/L (5-34); Albumin 3.9 g/dL (3.5-5.0); Alkaline Phosphatase 88 U/L (40-150); Anion Gap 11 mmol/L (10-20); BUN (Urea Nitrogen) 18 mg/dL (8.4-25.7); Bilirubin, Total 0.6 mg/dL (0.2-1.2); Calc. Creatinine Clearance 0 mL/min (70-130); Calcium 9.2 mg/dL (7.8-10.44); Carbon Dioxide 24 mmol/L (22-29); Chloride 107 mmol/L (98-107); Estimated GFR-MDRD 66; Globulin 3.6 g/dL (2.4-3.5); Glucose 102 mg/dL (70-105); Potassium 3.4 mmol/L (3.5-5.1); Protein, Total 7.5 g/dL (6.0-8.3); Sodium 139 mmol/L (136-145)
[2019-04-26] MEDS ORDERED: LABETALOL IVPB SCH (07:15)
[2019-04-26] MEDS ORDERED: D5W IVPB SCH (07:15)
[2019-04-26] MEDS ORDERED: Labetalol HCl 200 MG, Admixture Fee 1 EACH in Sodium Chloride 0.9% 250 ML 160 ML IVPB SCH (07:30)
--- NOTE | 2019-04-26 07:44 | PDOC.FPRHP ---
- History of Present Illness Chief Complaint: R-sided numbness History of Present Illness: Mr. Bunch is a pleasant 54YOM with a PMH significant for poorly controlled HTN , HFrEF and CKDIII who presented to the ED with a CC of right-sided paresthesias that began shortly after waking up around 0500 today. The patient reports he woke up at 0500 to take his AM meds and states his right leg and arm were numb and he had trouble "placing his right leg." He denies any weakness or falls was well as any associated dysarthria, headache, vision changes or chest pain. He denies any personal or FH or CVA or [place] and denies ever having had symptoms like the before. Stated he was in his usual state of health when he went to bed yesterday. ED Course: The patient was started on a cardene drip for BP control after his head CT showed an ICH. - Allergies/Adverse Reactions Allergies Allergy/AdvReac Type Severity Reaction Status Date / Time No Known Allergies Allergy Verified 04/26/19 07:55 - Home Medications Medication Instructions Recorded Confirmed Type Aspirin [Ecotrin Low Strength] 81 mg PO DAILY #30 tab 02/16/19 04/26/19 Rx Atorvastatin Calcium [Lipitor] 10 mg PO HS #30 tab 02/16/19 04/26/19 Rx Carvedilol [Coreg] 50 mg PO BID-WM #60 tab 02/16/19 04/26/19 Rx Furosemide [Lasix] 40 mg PO DAILY-AC #30 tab 02/16/19 04/26/19 Rx Isosorbide Dinitrate [Isordil] 40 mg PO BID #60 tab 02/16/19 04/26/19 Rx Potassium Chloride 10 meq PO DAILY #30 capsule.er 02/16/19 04/26/19 Rx hydrALAZINE [Apresoline] 75 mg PO BID #60 tab 02/16/19 04/26/19 Rx - History PMHx: HTN, HFrEF, CKD PSHx: none FHx: Father - HTN Social: Has smoked about 6 cigarettes/day for ~ 33 years. Denies any EtOH use. Smokes marijuana about 1x/week. No other drug use. Lives [place] and child's mother. - Review of Systems General: denies: fever/chills, fatigue Eyes: denies: eye pain, vision changes ENT: denies: nasal congestion, rhinorrhea Respiratory: denies: cough, shortness of breath Cardiovascular: denies: chest pain, edema Gastrointestinal: denies: nausea, vomiting, diarrhea, constipation, abdominal pain Genitourinary: denies: incontinence, dysuria Skin: denies: rashes, lesions Musculoskeletal: denies: pain, tenderness Neurological: reports: numbness. denies: syncope, weakness Psychological: denies: anxiety, depression - Vital signs BP: 176/99 HR: 93 RR: 21 Tmax: 97.8F Pox: 98% on RA Wt: 109 kg - Physical Exam Constitutional: NAD, awake, alert and oriented, well developed HEENT: normocephalic and atraumatic, PERRLA, EOMI, conjunctiva clear, no scleral icterus, grossly normal vision, grossly normal hearing, MMM, oropharynx clear Neck: supple, FROM Heart: RRR, normal S1/S2, no murmurs/rubs/gallops, pulses present, no edema Lungs: CTAB, no respiratory distress, good air movement, no rales/rhonchi, no wheezing, no retractions Abdomen: soft, non-tender, bowel sounds present Musculoskeletal: normal structure, normal tone, ROM grossly normal Neurological: no focal deficit, CN II-XII intact, other (2 beats of myoclonus in RLE w/ subjective decreased sensation to touch in B/L R extremities; normal cerebellar testing) Skin: no rash/lesions, good turgor, capillary refill <2 seconds, no jaundice Heme/Lymphatic: no unusual bruising or bleeding, no purpura, no petechia Psychiatric: normal mood and affect, good judgment and insight, intact recent and remote memory FMR H&P: Results - Labs Result Diagrams: 04/26/19 06:13 04/26/19 06:13 Lab results: WBC 5.0 thou/uL (4.8-10.8) 04/26/19 06:13 Hgb 14.6 g/dL (14.0-18.0) 04/26/19 06:13 Hct 45.7 % (42.0-52.0) 04/26/19 06:13 MCV 95.5 fL (78.0-98.0) 04/26/19 06:13 Plt Count 184 thou/uL (130-400) 04/26/19 06:13 Neutrophils % 47.0 % (42.0-75.0) 04/26/19 06:13 Sodium 139 mmol/L (136-145) 04/26/19 06:13 Potassium 3.4 mmol/L (3.5-5.1) L 04/26/19 06:13 Chloride 107 mmol/L (98-107) 04/26/19 06:13 Carbon Dioxide 24 mmol/L (22-29) 04/26/19 06:13 BUN 18 mg/dL (8.4-25.7) 04/26/19 06:13 Creatinine 1.37 mg/dL (0.7-1.3) H 04/26/19 06:13 Glucose 102 mg/dL (70-105) 04/26/19 06:13 Calcium 9.2 mg/dL (7.8-10.44) 04/26/19 06:13 Total Bilirubin 0.6 mg/dL (0.2-1.2) 04/26/19 06:13 AST 23 U/L (5-34) 04/26/19 06:13 ALT 19 U/L (8-55) 04/26/19 06:13 Alkaline Phosphatase 88 U/L (40-150) 04/26/19 06:13 Serum Total Protein 7.5 g/dL (6.0-8.3) 04/26/19 06:13 Albumin 3.9 g/dL (3.5-5.0) 04/26/19 06:13 - Radiology Interpretation CT scan - head Status: image reviewed by me, report reviewed by me Additional comment: intracerebral hematoma in posterior L basal ganglia/internal capsule measuring 20/14/20 mm Chest x-ray Status: image reviewed by me, report reviewed by me Additional comment: NAF FMR H&P: A/P - Problem List (1) Hemorrhagic cerebrovascular accident (CVA) Current Visit: Yes Status: Acute Code(s): I61.9 - NONTRAUMATIC INTRACEREBRAL HEMORRHAGE, UNSPECIFIED (2) Intracranial hemorrhage Current Visit: Yes Status: Acute Code(s): I62.9 - NONTRAUMATIC INTRACRANIAL HEMORRHAGE, UNSPECIFIED (3) CKD (chronic kidney disease) stage 2, GFR 60-89 ml/min Current Visit: Yes Status: Chronic Code(s): N18.2 - CHRONIC KIDNEY DISEASE, STAGE 2 (MILD) (4) Chronic HFrEF (heart failure with reduced ejection fraction) Current Visit: Yes Status: Chronic Code(s): I50.22 - CHRONIC SYSTOLIC ( CONGESTIVE) HEART FAILURE (5) Marijuana use Current Visit: Yes Status: Chronic Code(s): F12.90 - CANNABIS USE, UNSPECIFIED, UNCOMPLICATED (6) Tobacco abuse Current Visit: Yes Status: Chronic Code(s): Z72.0 - TOBACCO USE (7) Hypertension Current Visit: No Status: Chronic Code(s): I10 - ESSENTIAL (PRIMARY) HYPERTENSION Qualifiers: Hypertension type: essential hypertension Qualified Code(s): I10 - Essential (primary) hypertension Comment: uncontrolled, titrating up BP meds - Plan 54YOM with a PMH significant for HTN, CKDII & HFrEF who presented to the ED with a CC of R-sided paresthesias that began upon waking up at 0500 and was found to have suffered a hemorrhagic CVA in the setting of uncontrolled HTN. Hemorrhagic CVA: - Patient presented with complete R-sided paresthesias that were still present at the time of exam @ ~0800. BP was elevated at 182/122 on presentation and a [id number] L-sided ICH was noted on his head CT. Neurosurgery was urgently consulted from the ED but did not feel the patient required any immediate surgical intervention. Recommended admission with CCU with strict BP control with goal of SBP <160 & a repeat CT at 16:00 today. Will continue cardene drip to reach BP goal and wean as tolerated while resuming PO home meds once cleared by speech to tolerate PO. - Will continue MYLA Q4H neurochecks. Stroke team and neurosurgery on board. Will also consult neurology given concern for CVA rather than just hypertensive emergency. - Will obtain an A1c as a FLP was obtained during his last hospital stay for risk stratification but patient already on statin therapy. Will resume once tolerating PO. HTN: - Aware, see plan above. HFrEF: - Aware, EF from TTE on last admission showed an EF of 10-15% and patient follows with Dr. Bray as an outpatient as well as the HF clinic. Does not appear to be in acute exacerbation. - Will get QD weights & strict I&Os & resume a HH, Low Na diet once tolerating PO. CAD: - confirmed mild CAD on cath during last admission. Will resume high dose statin once tolerating PO but hold antiplatelets in setting of acute bleed. Tobacco use: - Aware, will encourage cessation. Marijuana use: - Aware, will encourage cessation. Dispo: Will continue cardene drip with BP goal of <160 systolic per neurosurgery and plan to resume home meds and wean drip as tolerated once taking PO. IVFs: none Diet: NPO pending speech eval Abx: none VTE PPx: SCDs GI PPx: none CODE STATUS: FULL CODE Addendum - Attending - Attending Attestation Date/Time: 04/26/19 0191 I personally evaluated the patient and discussed the management with Dr. Castle. I agree with the History, Examination, Assessment and Plan documented above with any addition or exceptions noted below. Patient presents with acute onset of R sided tingling/paresthesias this morning upon awakening. Reports being last known normal last night at bedtime. Denied headache, chest pain, R sided weakness, vision loss, voice/speech changes, L sided deficits. Presented to ED for further evaluation. On CT exam, found to have what appears to be L sided thalamic/lenticular nucleus hemorrhage. Patient had BP to 185 SBP on arrival. On exam, his neuro exam is pertinent for R sided decrease in subjective sensation, LE>UE. He does have 2 beats of myoclonus in the RLE. Full strength, normal cerebellar testing and normal CN testing. Labwork otherwise not significant. Patient will be admitted to the CCU for Acute Hemorrhagic CVA. Strict BP control with Cardene. Stroke team consult, Neuro consult, Rehab consult. Once able to swallow and stabilized, will start on PO HTN control. Avoid anticoagulation/antiplatelet therapy for now. NSGY on board and recommends repeat CT scan this afternoon to ensure no spread of lesion. Patient also reports some improvement. Otherwise, continue post CVA care and continue home meds for chronic conditions.
[2019-04-26] MEDS ORDERED: Labetalol HCl 100 MG/20 ML VIAL ONE (07:50)
--- NOTE | 2019-04-26 08:16 | RAD ---
EXAM: Single view of the chest HISTORY: Stroke with right-sided paresthesias COMPARISON: 02/09/2019 FINDINGS: Single view of the chest shows a normal sized cardiomediastinal silhouette. There is no bernadette dence of consolidation, mass, or pleural effusion. The bones are unremarkable. IMPRESSION: No evidence of acute cardiopulmonary disease
[2019-04-26] MEDS ORDERED: Acetaminophen 325 MG TAB PO PRN (08:46)
[2019-04-26] MEDS ORDERED: niCARdipine 25 MG in Sodium Chloride 0.9% 250 ML 250 ML IVPB SCH (08:46)
[2019-04-26 08:58] VITALS: BMI 29.4
[2019-04-26 09:06] LABS: Hemoglobin A1c 4.9 % (4.0-6.0)
--- NOTE | 2019-04-26 09:08 | CT ---
PRELIMINARY REPORT/[facility]/EMERGENCY AFTER HOURS PROCEDURE: Addendum created by Hakeem Morillo MD on 04/26/2019 6:50 AM [place] Time ([place] & [place]) Report of this case was discussed with the radiology Varun Nicholson at 6:20 AM CDT, 04/26/2019. The findings were acknow ledged and understood. Initial Report created on 04/26/2019 6:17 AM [place] Time ([place] & [place]) EXAM: CT Head Without Contrast EXAM DATE/TIME: 04/26/2019 5:54 AM CLINICAL HISTORY: 54 years old, male; Weakness, extremity; Patient HX: 54 y/o m presents to ED for stroke-like symptoms , described as R sided paresthesias. No h/o CVA. PT states that he first became aware of the parethes ias on waking this morning at 0500 to take his daily medications. No symptoms at 2300 last night when he went to bed TECHNIQUE: Imaging protocol: Computed tomography of the head without contrast. COMPARISON: No relevant prior studies available. FINDINGS: Brain: There is an acute intracerebral hematoma in the posterior aspect of the left basal ganglia/int ernal capsule region. The hematoma measures approximately 20 x 14 x 20 mm, estimated volume of 3.0 cc. The location suggests that this could be a hypertensive hemorrhage, please correlate clinically. Small amount of surrounding edema. No significant mass effect or midline shift at this time. No other acute intracranial hemorrhage. No other definite acute infarct by CT. MRI could be more sensitive/specific for detection, as clinica lly directed. Ventricles: Ventricle size is normal for age. Bones/joints: No definite acute skull fracture. Sinuses: Suspect a 15 mm retention cyst or polyp in the both maxillary sinuses. Included paranasal sinuses otherwise appear essentially clear. Mastoid air cells: No significant acute finding. IMPRESSION: 1. 20 x 14 x 20 mm acute intracerebral hematoma in the posterior left basal ganglia/internal capsule region. Please see above details/discussion. 2. No significant mass effect or midline shift at this time. 3. No other definite acute infarct by CT, see above. 4. Other findings discussed above. Thank you for allowing us to participate in the care of your patient. Dictated and Authenticated by: Hakeem Morillo MD 04/26/2019 6:17 AM [place] Time ([place] & [place]) FINAL REPORT CT BRAIN WITHOUT CONTRAST: FINDINGS/IMPRESSION: I agree with the findings and impression given in the preliminary report per [facility] physician. There is a left internal capsule hemorrhage, which may represent a hypertensive hemorrhage. POS: [facility]
--- NOTE | 2019-04-26 09:34 | CON ---
DATE OF CONSULTATION: HISTORY OF PRESENT ILLNESS: Mr. Bunch is a very pleasant 54-year-old man who this morning at 5:00 a.m. woke up to take his normal medications, but realized that he was unable to stand as normally as he usually does and then noted some numbness to the right upper and right lower extremity, thus prompted him to come to the emergency department. Neurosurgery was consulted, CT scan performed here at [facility] that reveals a left-sided hyperdensity in the basal ganglia that is very likely an acute hypertensive hemorrhage measuring roughly 2 cm at greatest width. There is minimal mass effect and no vasogenic edema. There was no midline shift. He does have a history of hypertension and does take medications for this, though he is not exactly sure what they are other than isosorbide mononitrate, and he does take an 81 mg aspirin daily, which he did take this morning. His systolic pressures upon presentation were in the 190s, upon my visit with him in the emergency department they were in the 170s. PHYSICAL EXAMINATION: On examination, he is alert and oriented x3. His upper extremity motor exam is normal on the left and lower extremity is normal on the left as well. Right lower extremity examination reveals 5-/5 strength in all movements. Right upper extremity is the same, 5-/5 in all movements. There is some numbness over scattered distributions of both the right upper and right lower extremity. Pupils are equal, round, and reactive to light. Extraocular movements are intact. From Neurosurgery's perspective, this is definitively a nonoperative hemorrhage. We recommend admission to either the stroke floor or the ICU depending on the ability to control his pressures as he is already on the higher level of Cardene and still not below the recommended 160 systolic. He will need to repeat the CT scan this afternoon. We will continue to follow along. I would anticipate that he will do quite well and recover nicely from this. Job ID: [id number]
[2019-04-26 09:47] LABS: Phosphorus 2.3 mg/dL (2.3-4.7)
--- NOTE | 2019-04-26 10:27 | CON ---
DATE OF CONSULTATION: HISTORY OF PRESENT ILLNESS: Mo Bunch is a 54-year-old gentleman, half pack a day smoker, presented after he woke up this morning and noted that his right side was numb. Denies any headache, seizure activity, or any weakness. In fact, he walked. Symptoms persisted. He came to the ER, where CT head showed a left midbrain hemorrhage. He just recently discharged from the hospital on February 16, 2019, with diagnosis of congestive cardiomyopathy and EF of 15%. He has no primary care physician, but he has been seeing a local ticket agent. No prior history of TB, pneumonia, or bronchial asthma. PAST MEDICAL HISTORY: Otherwise, pertinent mainly for cardiomyopathy, hypertension, and diabetes. PAST SURGICAL HISTORY: None. HOME MEDICATIONS: 1. Hydralazine 75 twice a day. 2. Potassium 10. 3. Isordil 40. 4. Lasix 40. 5. Coreg 50 twice a day. 6. Lipitor 10. SOCIAL HISTORY: REVIEW OF SYSTEMS: 10-point negative. PHYSICAL EXAMINATION: GENERAL: Awake, alert, responsive, moves all 4 extremities. No slurred speech. VITAL SIGNS: Temperature 97, pulse 88, saturations 90% on room air, blood pressure 147/99, on a nicardipine drip. CHEST: No wheezing or crackles. CARDIAC: Normal S1 and S2. No gallops. ABDOMEN: No masses. LABORATORY DATA: Creatinine 1.7. Lytes are normal. White count 5000, H and H of 14 and 45. ASSESSMENT: 1. Left-sided hemorrhage. 2. Cardiomyopathy. 3. Hypertension. 4. Tobacco abuse. PLAN: Restart home medication. Taper nicardipine. PT supportive care. Repeat echo. Pulmonary/Critical Care will follow in the ICU. This is a consultation note of which 70 minutes, 50% direct patient care. Job ID: [id number]
[2019-04-26] MEDS ORDERED: Potassium Chloride 20 MEQ TAB PO SCH (10:45)
[2019-04-26] MEDS: niCARdipine 50 MG in Sodium Chloride 0.9% 250 ML 230 ML IVPB SCH ×2 (11:39→16:24)
[2019-04-26 11:48] LABS: Amphetamine Not Detected (NotDetected); Barbiturates Screen Not Detected (NotDetected); Benzodiazepine Screen Not Detected (NotDetected); Cocaine Metabolite Screen Not Detected (NotDetected); Medtox Control Line Valid? VALID (VALID); Medtox Reader # READER 1; Methadone Not Detected (NotDetected); Methamphetamine Not Detected (NotDetected); Opiate Screen Not Detected (NotDetected); Oxycodone Screen Not Detected (NotDetected); Phencyclidine (PCP) Not Detected (NotDetected); THC/Cannabinoid Screen Detected (NotDetected); Tricyclic Screen Not Detected (NotDetected)
--- NOTE | 2019-04-26 16:05 | CT ---
Exam: Brain CT without IV contrast: HISTORY: Intracranial hemorrhage follow-up COMPARISON: 04/26/2019 FINDINGS: Again noted is a left basal ganglia intracranial hemorrhage with minimal surrounding edema. No signif icant change from the prior study. No new hemorrhage. No evidence for enlarging hemorrhagic focus. IMPRESSION: Overall stable left basal ganglia intraparenchymal hemorrhage.
[2019-04-26] MEDS: Carvedilol 25 MG TAB PO SCH (16:36)
[2019-04-26] MEDS: hydrALAZINE 25 MG TAB PO SCH (21:08)
[2019-04-26] MEDS: Atorvastatin Calcium 10 MG TAB PO SCH (21:08)
[2019-04-26] MEDS: Isosorbide Dinitrate 20 MG TAB PO SCH (21:09)
--- NOTE | 2019-04-27 06:33 | PDOC.FM ---
- Subjective Subjective: NAEO. Patient's SBP remained below 160 overnight on the cardene drip. Patient reports persistent paresthesias, especially in his R leg but denies any headache , vision changes, speech changes, or focal weakness. - Objective MAR Reviewed: Yes Vital Signs & Weight: Vital Signs (12 hours) Temp Pulse Pulse Ox 04/27/19 04:00 98.4 F 04/27/19 00:00 98.3 F 04/26/19 21:08 88 04/26/19 20:00 98.9 F 94 L Weight Weight 109 kg Most Recent Monitor Data Heart Rate from ECG 75 NIBP 142/102 NIBP BP-Mean 115 Respiration from ECG 24 SpO2 93 I&O: 04/25/19 04/26/19 04/27/19 06:59 06:59 06:59 Intake Total 1205 Output Total 1985 Balance -780 Result Diagrams: 04/26/19 06:13 04/26/19 06:13 Radiology Reviewed by me: Yes (16:[address]: stable L ICH) Phys Exam - Physical Examination Constitutional: NAD HEENT: moist MMs, sclera anicteric Neck: supple, full ROM Respiratory: no wheezing, no rales, no rhonchi, clear to auscultation bilateral Cardiovascular: RRR, no significant murmur Musculoskeletal: no edema, pulses present Neurological: non-focal, moves all 4 limbs decreased sensation to touch in RLE Psychiatric: normal affect, A&O x 3 Skin: no rash, normal turgor, cap refill <2 seconds Dx/Plan (1) Hemorrhagic cerebrovascular accident (CVA) Code(s): I61.9 - NONTRAUMATIC INTRACEREBRAL HEMORRHAGE, UNSPECIFIED Status: Acute (2) Intracranial hemorrhage Code(s): I62.9 - NONTRAUMATIC INTRACRANIAL HEMORRHAGE, UNSPECIFIED Status: Acute (3) CKD (chronic kidney disease) stage 2, GFR 60-89 ml/min Code(s): N18.2 - CHRONIC KIDNEY DISEASE, STAGE 2 (MILD) Status: Chronic (4) Chronic HFrEF (heart failure with reduced ejection fraction) Code(s): I50.22 - CHRONIC SYSTOLIC (CONGESTIVE) HEART FAILURE Status: Chronic (5) Marijuana use Code(s): F12.90 - CANNABIS USE, UNSPECIFIED, UNCOMPLICATED Status: Chronic (6) Tobacco abuse Code(s): Z72.0 - TOBACCO USE Status: Chronic (7) Hypertension Code(s): I10 - ESSENTIAL (PRIMARY) HYPERTENSION Status: Chronic Qualifiers: Hypertension type: essential hypertension Qualified Code(s): I10 - Essential (primary) hypertension - Plan Plan: 54YOM with a PMH significant for HTN, CKDII & HFrEF who presented to the ED with a CC of R-sided paresthesias that began upon waking up at 0500 and was found to have suffered a hemorrhagic CVA in the setting of uncontrolled HTN. Hemorrhagic CVA: - Patient presented with R-sided paresthesias & BP was elevated at 182/122 on presentation and a [id number] L-sided ICH was noted on his head CT. - BP has been within goal range on the cardene drip & resuming home meds. Will continue all usual home meds today and adjust PRN to keep SBP < 160. - Will de-escalate neurochecks. Stroke team and neurosurgery on board. Appreciate recs. Will consult CM to assist with placement vs. home w/ HH PT upon d/c. - Will continue statin therapy but hold ASA in setting of acute bleed. HTN: - Aware, see plan above. HFrEF: - Aware, patient does not appear to be in acute exacerbation. - EF from TTE on last admission showed an EF of 10-15% but repeat done yesterday shows a markedly improved EF of 45-50% but LV dysfunction was still noted. - Will resume home meds & get QD weights & strict I&Os. CAD: - Mild CAD noted on cath during last admission. Will continue statin therapy. Tobacco use: - Aware, will encourage cessation. Marijuana use: - Aware, will encourage cessation. Dispo: Will resume home PO meds with BP goal of <160 systolic per neurosurgery. Will likely be able to move to stroke floor today. IVFs: none Diet: HH, include low Na Abx: none VTE PPx: SCDs GI PPx: none CODE STATUS: FULL CODE Addendum - Attending - Attending Attestation Date/Time: 04/27/19 3225 I personally evaluated the patient and discussed the management with Dr. Castle. I agree with the History, Examination, Assessment and Plan documented above with any addition or exceptions noted below. Patient here after hemorrhagic CVA. Currently stable and only having sensory deficits. Continue BP control. Can likely transfer out of CCU today as he is off Cardene. Escalate BP control as needed. Avoid ASA. Continue therapy services. Dispo pending.
[2019-04-27 07:59] LABS: ALT (SGPT) 16 U/L (8-55); AST (SGOT) 20 U/L (5-34); Albumin 3.6 g/dL (3.5-5.0); Alkaline Phosphatase 80 U/L (40-150); Anion Gap 10 mmol/L (10-20); BUN (Urea Nitrogen) 13 mg/dL (8.4-25.7); Bilirubin, Total 0.7 mg/dL (0.2-1.2); Calc. Creatinine Clearance 114 mL/min (70-130); Calcium 8.9 mg/dL (7.8-10.44); Carbon Dioxide 22 mmol/L (22-29); Chloride 108 mmol/L (98-107); Estimated GFR-MDRD 79; Globulin 3.4 g/dL (2.4-3.5); Glucose 100 mg/dL (70-105); Potassium 3.9 mmol/L (3.5-5.1); Sodium 136 mmol/L (136-145)
--- NOTE | 2019-04-27 08:18 | PRG ---
DATE OF SERVICE: 04/27/2019 SUBJECTIVE: This morning, awake, alert and responsive. He is better, off the Cardene. He denies any numbness or weakness. He is back on his home medication. OBJECTIVE: VITAL SIGNS: His pulse is 82, his saturations are 98%, respiratory rate 19. Blood pressure 160/100. CHEST: Decreased breath sounds. No wheezing. CARDIAC: Normal S1, S2.no gallops. LABORATORY DATA: His echo was surprisingly back to normal. ASSESSMENT AND PLAN: Stable left basal ganglia, intraparenchymal hemorrhage, hypertension, cardiomyopathy, improved. Disposition, Neurosurgery. Pulmonary will follow while in the ICU. Job ID: [id number] MTDD
[2019-04-27] MEDS: hydrALAZINE 25 MG TAB PO SCH (08:23)
[2019-04-27] MEDS: Carvedilol 25 MG TAB PO SCH ×2 (08:23→15:52)
[2019-04-27] MEDS: Isosorbide Dinitrate 20 MG TAB PO SCH ×2 (08:23→21:05)
[2019-04-27] MEDS: Furosemide 40 MG TAB PO SCH (08:24)
[2019-04-27] MEDS: Potassium Chloride 10 MEQ TAB PO SCH (08:24)
--- NOTE | 2019-04-27 12:35 | PRG ---
DATE OF SERVICE: 04/27/2019 Mr. Bunch is a pleasant 54-year-old gentleman who was admitted yesterday for intracerebral hemorrhage that was hypertensive in origin most likely. This morning, his blood pressure has been much better controlled, has remained below 160 systolic and has been off the Cardene overnight. His paresthesias in his right leg are still same as yesterday; however, the right upper extremity seems to be improving. He also has better senior advisory strength than he did yesterday. Again, from a cognitive standpoint, he has been at his baseline this entire time, and that is no different this morning. Repeat CT scan from yesterday afternoon shows essentially stable left basal ganglia hemorrhage with now some minimal edema surrounding this, but again no mass effect or midline shift is noted. From Neurosurgery's perspective, he is stable from a surgical standpoint. We will need to see him in the outpatient clinic in roughly one month. We will get repeat CT of the head at that time. He will need to remain off aspirin, which he takes daily as well as any other blood thinners including NSAID medications. This was discussed with him at bedside. We will arrange followup. We will sign off at this time. Job ID: [id number]
[2019-04-27] MEDS ORDERED: hydrALAZINE 25 MG TAB PO SCH ×3 (16:15→21:00)
[2019-04-27] MEDS: Atorvastatin Calcium 10 MG TAB PO SCH (21:04)
--- NOTE | 2019-04-28 06:23 | PDOC.FM ---
- Subjective Subjective: NAEO. BP remained below 160 systolic overnight. Patient reports mild persistent paresthesias in RLE but denies any focal weakness, speech or vision changes, headache or chest pain. - Objective MAR Reviewed: Yes Vital Signs & Weight: Vital Signs (12 hours) Temp Pulse Resp BP Pulse Ox 04/28/19 04:00 98.2 F 72 16 153/94 H 98 04/27/19 23:45 98.2 F 82 18 141/82 H 99 04/27/19 21:00 98 F 74 16 159/108 H 99 Weight Weight 108.908 kg Most Recent Monitor Data Heart Rate from ECG 71 NIBP 158/88 NIBP BP-Mean 117 Respiration from ECG 21 SpO2 16 I&O: 04/26/19 04/27/19 04/28/19 06:59 06:59 06:59 Intake Total 1205 540 Output Total 1985 1950 Balance -780 1410 Result Diagrams: 04/26/19 06:13 04/28/19 05:56 Phys Exam - Physical Examination Constitutional: NAD HEENT: PERRLA, moist MMs, sclera anicteric Neck: supple, full ROM Respiratory: no wheezing, no rales, no rhonchi, clear to auscultation bilateral Cardiovascular: RRR, no significant murmur Musculoskeletal: no edema Neurological: non-focal, moves all 4 limbs decreased sensation in RLE Psychiatric: normal affect, A&O x 3 Skin: no rash, normal turgor Dx/Plan (1) Hemorrhagic cerebrovascular accident (CVA) Code(s): I61.9 - NONTRAUMATIC INTRACEREBRAL HEMORRHAGE, UNSPECIFIED Status: Acute (2) Intracranial hemorrhage Code(s): I62.9 - NONTRAUMATIC INTRACRANIAL HEMORRHAGE, UNSPECIFIED Status: Acute (3) CKD (chronic kidney disease) stage 2, GFR 60-89 ml/min Code(s): N18.2 - CHRONIC KIDNEY DISEASE, STAGE 2 (MILD) Status: Chronic (4) Chronic HFrEF (heart failure with reduced ejection fraction) Code(s): I50.22 - CHRONIC SYSTOLIC (CONGESTIVE) HEART FAILURE Status: Chronic (5) Marijuana use Code(s): F12.90 - CANNABIS USE, UNSPECIFIED, UNCOMPLICATED Status: Chronic (6) Tobacco abuse Code(s): Z72.0 - TOBACCO USE Status: Chronic (7) Hypertension Code(s): I10 - ESSENTIAL (PRIMARY) HYPERTENSION Status: Chronic Qualifiers: Hypertension type: essential hypertension Qualified Code(s): I10 - Essential (primary) hypertension - Plan Plan: 54YOM with a PMH significant for HTN, CKDII & HFrEF who presented to the ED with a CC of R-sided paresthesias that began upon waking up at 0500 and was found to have suffered a hemorrhagic CVA in the setting of uncontrolled HTN. Hemorrhagic CVA: - Patient presented with R-sided paresthesias & BP was elevated at 182/122 on presentation and a [id number] L-sided ICH was noted on his head CT. - Will continue all usual home meds today but with hydralazine increased to 100mg BID and adjust PRN to keep SBP < 160. NS signed off and patient is to f/u with them as an outpatient in 4 weeks for a repeat head CT. - Will de-escalate neurochecks. Stroke team on board. Will consult CM to assist with placement vs. home w/ HH PT upon d/c. - Will continue statin therapy but hold ASA in setting of acute bleed. HTN: - Aware, will increase QD hydralazine to 100mg BID today as an additional dose yesterday afternoon kept BP better controlled overnight. Will monitor BPs closely today and continue to titrate meds as an outpatient for better BP control. HFrEF: - Aware, patient does not appear to be in acute exacerbation. - EF from TTE on last admission showed an EF of 10-15% but repeat done yesterday shows a markedly improved EF of 45-50% but LV dysfunction was still noted. - Will continue home meds & get QD weights & strict I&Os. CAD: - Mild CAD noted on cath during last admission. Will continue statin therapy. Tobacco use: - Aware, will encourage cessation. Marijuana use: - Aware, will encourage cessation. Dispo: Will continue home BP meds & continue to adjust PRN with BP goal of <160 systolic per neurosurgery. Anticipate d/c within next 24-48 hours pending BP remains at goal and CM is able to set patient up with appropriate therapy per PT recs. IVFs: none Diet: HH, include low Na Abx: none VTE PPx: SCDs GI PPx: none CODE STATUS: FULL CODE Addendum - Attending - Attending Attestation Date/Time: 04/28/1928 I personally evaluated the patient and discussed the management with Dr. Castle. I agree with the History, Examination, Assessment and Plan documented above with any addition or exceptions noted below. Patient overall stable. BP improved on PO meds. He continues to have decreased sensation in his LLE but LUE is improving. NSGY has signed off. If BP well controlled today, he will likely be stable for discharge with outpatient therapy and primary care follow up.
[2019-04-28 06:48] LABS: ALT (SGPT) 15 U/L (8-55); AST (SGOT) 17 U/L (5-34); Albumin 3.6 g/dL (3.5-5.0); Alkaline Phosphatase 83 U/L (40-150); Anion Gap 12 mmol/L (10-20); BUN (Urea Nitrogen) 18 mg/dL (8.4-25.7); Bilirubin, Total 0.6 mg/dL (0.2-1.2); Calc. Creatinine Clearance 103 mL/min (70-130); Calcium 9.2 mg/dL (7.8-10.44); Carbon Dioxide 21 mmol/L (22-29); Chloride 107 mmol/L (98-107); Estimated GFR-MDRD 71; Globulin 3.4 g/dL (2.4-3.5); Glucose 93 mg/dL (70-105); Potassium 3.8 mmol/L (3.5-5.1); Sodium 136 mmol/L (136-145)
[2019-04-28] MEDS: Carvedilol 25 MG TAB PO SCH ×2 (08:04→16:23)
[2019-04-28] MEDS: hydrALAZINE 25 MG TAB PO SCH ×2 (08:04→20:04)
[2019-04-28] MEDS: Furosemide 40 MG TAB PO SCH (08:05)
[2019-04-28] MEDS: Isosorbide Dinitrate 20 MG TAB PO SCH ×2 (08:05→20:04)
[2019-04-28] MEDS: Potassium Chloride 10 MEQ TAB PO SCH (08:05)
[2019-04-28] MEDS: Atorvastatin Calcium 10 MG TAB PO SCH (20:04)
[2019-04-29 04:37] LABS: ALT (SGPT) 15 U/L (8-55); AST (SGOT) 17 U/L (5-34); Albumin 3.7 g/dL (3.5-5.0); Alkaline Phosphatase 83 U/L (40-150); Anion Gap 11 mmol/L (10-20); BUN (Urea Nitrogen) 21 mg/dL (8.4-25.7); Bilirubin, Total 0.6 mg/dL (0.2-1.2); Calc. Creatinine Clearance 94 mL/min (70-130); Calcium 9.3 mg/dL (7.8-10.44); Carbon Dioxide 23 mmol/L (22-29); Chloride 106 mmol/L (98-107); Estimated GFR-MDRD 63; Globulin 3.5 g/dL (2.4-3.5); Glucose 102 mg/dL (70-105); Potassium 3.8 mmol/L (3.5-5.1); Protein, Total 7.2 g/dL (6.0-8.3); Sodium 136 mmol/L (136-145)
[2019-04-29] MEDS: Furosemide 40 MG TAB PO SCH (08:39)
[2019-04-29] MEDS: Isosorbide Dinitrate 20 MG TAB PO SCH ×2 (08:40→21:01)
[2019-04-29] MEDS: Carvedilol 25 MG TAB PO SCH ×2 (08:40→16:57)
[2019-04-29] MEDS: Potassium Chloride 10 MEQ TAB PO SCH (08:41)
[2019-04-29] MEDS: hydrALAZINE 25 MG TAB PO SCH ×2 (08:41→21:01)
[2019-04-29] MEDS ORDERED: Lisinopril 5 MG TAB PO SCH (09:00)
[2019-04-29] MEDS ORDERED: Amlodipine 5 MG TAB PO SCH ×3 (09:51→13:15)
--- NOTE | 2019-04-29 10:10 | CON ---
DATE OF CONSULTATION: 04/29/2019 PRIMARY CNC MACHINIST: Masood Bray MD REASON FOR CONSULTATION: 1. Nonischemic cardiomyopathy. 2. Hypertension. 3. Nonsustained ventricular tachycardia. HISTORY OF PRESENT ILLNESS: Mr. Bunch is a very pleasant 54-year-old gentleman with a nonischemic cardiomyopathy. The patient was admitted on this occasion with intracerebral hemorrhage. He has had severe hypertension. The blood pressure is still being regulated. Since he has been through on the monitor, it has been noted that he has had some asymptomatic episodes of nonsustained ventricular tachycardia. He was placed on intravenous nicardipine initially, but he is not on that now, and his blood pressure was elevated. MEDICATIONS: He takes, 1. Hydralazine 100 mg twice a day. 2. Isosorbide dinitrate 40 mg twice a day. 3. Lisinopril 5 mg a day. 4. Atorvastatin. ALLERGIES: NONE KNOWN. SOCIAL HISTORY: No alcohol or tobacco. FAMILY HISTORY: Father has severe hypertension. REVIEW OF SYSTEMS: CONSTITUTIONAL: No significant weight gain or loss. VISION: No changes. HEARING: No changes. PULMONARY: No cough or wheezing. GASTROINTESTINAL: No nausea, vomiting, or diarrhea. SKIN: No rashes. PHYSICAL EXAMINATION: GENERAL: This is a very pleasant 54-year-old gentleman. VITAL SIGNS: His blood pressure is 169/115, pulse 70. LUNGS: Clear. CARDIAC: Normal S1, normal S2. ABDOMEN: Soft, nontender. EXTREMITIES: There is no significant edema. ASSESSMENT: 1. Nonischemic cardiomyopathy. 2. Recent intracerebral hemorrhage. 3. Hypertension, difficult to control. 4. Renal insufficiency. Creatinine 1.42. PLAN: 1. Continue carvedilol and lisinopril. 2. We will add amlodipine 5 mg a day, dose can be increased as needed to control blood pressure. 3. Nonsustained ventricular tachycardia. Continue to monitor. Most recent ejection fraction 45% to 50%. Dr. Bray to resume care on Wednesday. Job ID: [id number]
--- NOTE | 2019-04-29 12:08 | PDOC.FM ---
- Subjective Subjective: Patient doing well this AM. He had several non-sustained beats of Vtach. Patient asymptomatic during episodes. Patient is frustrated because he would really like to go home, but his BP has not been well controlled. He denies chest pain, shortness of breath, palpitations, N/V, or headaches. - Objective MAR Reviewed: Yes Vital Signs & Weight: Vital Signs (12 hours) Temp Pulse Pulse Pulse Resp BP BP 04/29/19 11:53 70 127/81 04/29/19 08:41 70 169/115 H 04/29/19 08:40 70 65 157/105 H 04/29/19 08:00 04/29/19 07:17 98.2 F 70 16 04/29/19 04:00 98.3 F 69 16 BP BP Pulse Ox 04/29/19 11:53 04/29/19 08:41 04/29/19 08:40 164/109 H 04/29/19 08:00 98 04/29/19 07:17 169/115 H 98 04/29/19 04:00 156/101 H 98 Weight Weight 109.18 kg Most Recent Monitor Data Heart Rate from ECG 71 NIBP 158/88 NIBP BP-Mean 117 Respiration from ECG 21 SpO2 16 I&O: 04/28/19 04/29/19 04/30/19 06:59 06:59 06:59 Intake Total 1260 1787 Output Total 2600 200 Balance -1340 1587 Result Diagrams: 04/26/19 06:13 04/29/19 04:06 EKG Reviewed by me: Yes Radiology Reviewed by me: Yes Phys Exam - Physical Examination Constitutional: NAD HEENT: moist MMs Respiratory: no wheezing, no rales, clear to auscultation bilateral Cardiovascular: RRR Gastrointestinal: soft, non-tender, no distention, positive bowel sounds Musculoskeletal: no edema, pulses present Neurological: non-focal, moves all 4 limbs Psychiatric: normal affect, A&O x 3 Skin: no rash, cap refill <2 seconds Dx/Plan (1) Nonsustained ventricular tachycardia Code(s): I47.2 - VENTRICULAR TACHYCARDIA Status: Acute (2) Hemorrhagic cerebrovascular accident (CVA) Code(s): I61.9 - NONTRAUMATIC INTRACEREBRAL HEMORRHAGE, UNSPECIFIED Status: Acute (3) CKD (chronic kidney disease) stage 2, GFR 60-89 ml/min Code(s): N18.2 - CHRONIC KIDNEY DISEASE, STAGE 2 (MILD) Status: Chronic (4) Chronic HFrEF (heart failure with reduced ejection fraction) Code(s): I50.22 - CHRONIC SYSTOLIC (CONGESTIVE) HEART FAILURE Status: Chronic (5) Tobacco abuse Code(s): Z72.0 - TOBACCO USE Status: Chronic (6) Hypertension Code(s): I10 - ESSENTIAL (PRIMARY) HYPERTENSION Status: Chronic Qualifiers: Hypertension type: essential hypertension Qualified Code(s): I10 - Essential (primary) hypertension - Plan Plan: 54YOM with a PMH significant for HTN, CKDII & HFrEF who presented to the ED with a CC of R-sided paresthesias that began upon waking up at 0500 and was found to have suffered a hemorrhagic CVA in the setting of uncontrolled HTN. Hemorrhagic CVA: - Patient presented with R-sided paresthesias & BP was elevated at 182/122 on presentation and a [id number] L-sided ICH was noted on his head CT. - Will continue all usual home meds; hydralazine increased to 100 mg BID yesterday. BP still above goal of SBP >160 mmHg - Neurosurgery signed off and patient is to f/u with them as an outpatient in 4 weeks for a repeat head CT. - Patient to go home with HH/PT upon d/c - Will continue statin therapy but hold ASA in setting of acute bleed. HTN: - Aware, see above - Not well controlled, particularly diastolic - Lisinopril added this AM - Cardiology consulted; appreciate recs HFrEF: - Aware, patient does not appear to be in acute exacerbation. - EF from TTE on last admission showed an EF of 10-15% but repeat done yesterday shows a markedly improved EF of 45-50% but LV dysfunction was still noted. - Will continue home meds & get QD weights & strict I&Os. CAD: - Mild CAD noted on cath during last admission. Will continue statin therapy. Tobacco use: - Aware, will encourage cessation. Marijuana use: - Aware, will encourage cessation. Non-sustained VT - Patient asymptomatic - Cardiology consulted; appreciate recs Dispo: Will continue to adjust BP meds with BP goal of <160 systolic per neurosurgery. Anticipate d/c within next 24-48 hours pending BP remains at goal. Diet: HH, include low Na VTE PPx: SCDs GI PPx: none CODE STATUS: FULL CODE Addendum - Attending - Attending Attestation Date/Time: 04/29/19 3234 I personally evaluated the patient and discussed the management with Dr. Mosqueda. I agree with the History, Examination, Assessment and Plan documented above with any addition or exceptions noted below. Pt with nonsustained vtach overnight. Consulting cardiology. Continue to adjust bp meds for better control.
[2019-04-29] MEDS ORDERED: Labetalol HCl 100 MG/20 ML VIAL IVPB SCH (19:15)
[2019-04-29] MEDS: Atorvastatin Calcium 10 MG TAB PO SCH (21:01)
--- NOTE | 2019-04-30 03:16 | EKG ---
Test Reason : STROKE ALERT Blood Pressure : / mmHG Vent. Rate : 084 BPM Atrial Rate : 084 BPM P-R Int : 186 ms QRS Dur : 084 ms QT Int : 404 ms P-R-T Axes : 044 -28 070 degrees QTc Int : 477 ms Normal sinus rhythm Left atrial enlargement Cannot rule out Inferior infarct , age undetermined Possible Anterior infarct , age undetermined Abnormal ECG Confirmed by ARPITA EDEN DO ([id number]), editorial director NAVDEEP JOINER ([id number]) on 04/30/2019 3:15:16 AM Referred By: Confirmed By:ARPITA EDEN DO
[2019-04-30 05:18] LABS: ALT (SGPT) 15 U/L (8-55); AST (SGOT) 16 U/L (5-34); Albumin 3.7 g/dL (3.5-5.0); Alkaline Phosphatase 80 U/L (40-150); Anion Gap 10 mmol/L (10-20); BUN (Urea Nitrogen) 20 mg/dL (8.4-25.7); Bilirubin, Total 0.6 mg/dL (0.2-1.2); Calc. Creatinine Clearance 95 mL/min (70-130); Carbon Dioxide 25 mmol/L (22-29); Chloride 106 mmol/L (98-107); Estimated GFR-MDRD 65; Globulin 3.3 g/dL (2.4-3.5); Glucose 102 mg/dL (70-105); Potassium 3.8 mmol/L (3.5-5.1); Sodium 137 mmol/L (136-145)
--- NOTE | 2019-04-30 08:06 | PDOC.FM ---
- Subjective Subjective: Patient doing well this AM. No significant overnight events. Patient denies chest pain, shortness of breath, or headache. Patient did require 2 doses of labetolol overnight. - Objective MAR Reviewed: Yes Vital Signs & Weight: Vital Signs (12 hours) Temp Pulse Resp BP BP BP Pulse Ox 04/30/19 03:25 98.5 F 61 18 147/86 H 97 04/30/19 01:00 61 152/91 H 04/29/19 23:22 98.1 F 65 18 138/82 96 04/29/19 21:01 64 166/103 H 04/29/19 21:00 64 166/103 H Weight Weight 110.314 kg Most Recent Monitor Data Heart Rate from ECG 71 NIBP 158/88 NIBP BP-Mean 117 Respiration from ECG 21 SpO2 16 I&O: 04/29/19 04/30/19 05/01/19 06:59 06:59 06:59 Intake Total 1787 1190 Output Total 200 Balance 1587 1190 Result Diagrams: 04/26/19 06:13 04/30/19 04:42 EKG Reviewed by me: Yes Radiology Reviewed by me: Yes Phys Exam - Physical Examination Constitutional: NAD HEENT: moist MMs Respiratory: no wheezing, clear to auscultation bilateral Cardiovascular: RRR, no significant murmur Gastrointestinal: soft, no distention Musculoskeletal: no edema, pulses present Neurological: non-focal, moves all 4 limbs Psychiatric: normal affect, A&O x 3 Skin: no rash, cap refill <2 seconds Dx/Plan (1) Nonsustained ventricular tachycardia Code(s): I47.2 - VENTRICULAR TACHYCARDIA Status: Acute (2) Hemorrhagic cerebrovascular accident (CVA) Code(s): I61.9 - NONTRAUMATIC INTRACEREBRAL HEMORRHAGE, UNSPECIFIED Status: Acute (3) CKD (chronic kidney disease) stage 2, GFR 60-89 ml/min Code(s): N18.2 - CHRONIC KIDNEY DISEASE, STAGE 2 (MILD) Status: Chronic (4) Chronic HFrEF (heart failure with reduced ejection fraction) Code(s): I50.22 - CHRONIC SYSTOLIC (CONGESTIVE) HEART FAILURE Status: Chronic (5) Tobacco abuse Code(s): Z72.0 - TOBACCO USE Status: Chronic (6) Hypertension Code(s): I10 - ESSENTIAL (PRIMARY) HYPERTENSION Status: Chronic Qualifiers: Hypertension type: essential hypertension Qualified Code(s): I10 - Essential (primary) hypertension - Plan Plan: 54YOM with a PMH significant for HTN, CKDII & HFrEF who presented to the ED with a CC of R-sided paresthesias that began upon waking up at 0500 and was found to have suffered a hemorrhagic CVA in the setting of uncontrolled HTN. Hemorrhagic CVA: - Patient presented with R-sided paresthesias & BP was elevated at 182/122 on presentation and a [id number] L-sided ICH was noted on his head CT. - Will continue all usual home meds - Cardiology consulted; appreciate recs - BP medication changes per Cardiology, increased doses of lisinopril and amlodipine given patient requiring labetolol PRN - Neurosurgery signed off and patient is to f/u with them as an outpatient in 4 weeks for a repeat head CT - Patient to go home with HH/PT upon d/c - Will continue statin therapy but hold ASA in setting of acute bleed - Continue to monitor BP, ensure documentation is appropriate and SBP <160. If BP remains SBP <160, patient can likely be discharged home with close follow up. If BP not at goal, will need to continue to titrate medications. HTN: - Aware, see above - Cardiology consulted; appreciate recs HFrEF: - Aware, patient does not appear to be in acute exacerbation. - EF from TTE on last admission showed an EF of 10-15% but repeat done yesterday shows a markedly improved EF of 45-50% but LV dysfunction was still noted. - Will continue home meds & get QD weights & strict I&Os. CAD: - Mild CAD noted on cath during last admission. Will continue statin therapy. Tobacco use: - Aware, will encourage cessation. Marijuana use: - Aware, will encourage cessation. Non-sustained VT - Patient asymptomatic - Cardiology consulted; appreciate recs Dispo: Will continue to adjust BP meds with BP goal of <160 systolic per neurosurgery. Diet: HH, include low Na VTE PPx: SCDs GI PPx: none CODE STATUS: FULL CODE Addendum - Attending - Attending Attestation Date/Time: 04/30/19 3096 I personally evaluated the patient and discussed the management with Dr. Mosqueda. I agree with the History, Examination, Assessment and Plan documented above with any addition or exceptions noted below. Pts blood pressures are back up again today. Increasing amlodipine. Can adjust other meds. Will trend bp today. If it is stable, he may be able to go home but the 170's / 100's are not controlled.
[2019-04-30] MEDS: Potassium Chloride 10 MEQ TAB PO SCH (08:43)
[2019-04-30] MEDS: Isosorbide Dinitrate 20 MG TAB PO SCH ×2 (08:43→20:39)
[2019-04-30] MEDS: hydrALAZINE 25 MG TAB PO SCH ×2 (08:43→20:40)
[2019-04-30] MEDS: Lisinopril 10 MG TAB PO SCH (08:44)
[2019-04-30] MEDS: Carvedilol 25 MG TAB PO SCH ×2 (08:46→16:35)
[2019-04-30] MEDS: Furosemide 40 MG TAB PO SCH (08:46)
[2019-04-30] MEDS ORDERED: Amlodipine 5 MG TAB PO SCH ×2 (09:00)
[2019-04-30] MEDS ORDERED: Labetalol HCl 100 MG/20 ML VIAL SLOW IVP PRN (09:02)
--- NOTE | 2019-04-30 10:01 | PRG ---
DATE OF SERVICE: 04/30/2019 SUBJECTIVE: Mr. Bunch is doing well symptomatically today, no chest pain or pressure. However the blood pressure is very high. OBJECTIVE: VITAL SIGNS: Blood pressure 176/113, pulse 66. LUNGS: Clear. CARDIAC: Normal S1, S2. ASSESSMENT: 1. Recent intracranial hemorrhage. 2. Still uncontrolled hypertension. 3. Cardiomyopathy. PLAN: 1. Amlodipine was increased to 10 mg a day. 2. If blood pressure is not well controlled, I would consider stopping amlodipine and changing to Procardia XL [address] Bray will resume the patient's cardiac care tomorrow. Job ID: [id number]
--- NOTE | 2019-04-30 16:40 | ULT ---
CLINICAL HISTORY: Hypertension. STUDY: Renal ultrasound and renal artery ultrasound COMPARISON: None. TECHNIQUE: Multiplanar grayscale and color Doppler images were obtained in a renal ultrasound. Spectr al analysis of the Doppler waveforms of the aorta and renal arteries were performed. FINDINGS: Right kidney: Echogenicity: Normal. Masses/cysts: 2.4 cm cyst Hydronephrosis: None. Calcifications: None. Length: 11.2 cm Left kidney: Echogenicity: Normal. Masses/cysts: None. Hydronephrosis: None. Calcifications: None. Length: 11.5 cm Limited visualization of the urinary bladder is unremarkable. Peak systolic velocity in the aorta: 95 cm/s Peak systolic velocity in the right renal artery: 50 cm/s. Right renal artery to aortic ratio: 0.5 Peak systolic velocity in the left renal artery: 68 cm/s. Left renal artery to aortic ratio: 0.7 IMPRESSION: 1. Right renal cyst 2. No evidence of renal artery stenosis
[2019-04-30] MEDS: Atorvastatin Calcium 10 MG TAB PO SCH (20:39)
[2019-05-01 05:30] LABS: ALT (SGPT) 17 U/L (8-55); AST (SGOT) 17 U/L (5-34); Albumin 3.9 g/dL (3.5-5.0); Alkaline Phosphatase 84 U/L (40-150); Anion Gap 11 mmol/L (10-20); BUN (Urea Nitrogen) 20 mg/dL (8.4-25.7); Bilirubin, Total 0.5 mg/dL (0.2-1.2); Calc. Creatinine Clearance 98 mL/min (70-130); Calcium 9.5 mg/dL (7.8-10.44); Carbon Dioxide 24 mmol/L (22-29); Chloride 106 mmol/L (98-107); Estimated GFR-MDRD 66; Globulin 3.5 g/dL (2.4-3.5); Glucose 103 mg/dL (70-105); Potassium 3.7 mmol/L (3.5-5.1); Protein, Total 7.4 g/dL (6.0-8.3); Sodium 137 mmol/L (136-145)
--- NOTE | 2019-05-01 05:59 | PDOC.FM ---
- Subjective Subjective: Doing well. No complaints overnight. He has no chest pain, RAMIREZ, SOB. - Objective MAR Reviewed: Yes Vital Signs & Weight: Vital Signs (12 hours) Temp Pulse Resp BP BP BP Pulse Ox 05/01/19 04:00 97.7 F 59 L 16 151/61 H 98 04/30/19 23:22 97.9 F 65 16 146/83 H 98 04/30/19 20:40 73 181/103 H 04/30/19 19:33 98.4 F 75 16 164/98 H 98 04/30/19 18:00 66 155/98 H Weight Weight 110.314 kg Most Recent Monitor Data Heart Rate from ECG 71 NIBP 158/88 NIBP BP-Mean 117 Respiration from ECG 21 SpO2 16 I&O: 04/29/19 04/30/19 05/01/19 06:59 06:59 06:59 Intake Total 1787 1190 480 Output Total 200 Balance 1587 1190 480 Result Diagrams: 04/26/19 06:13 05/01/19 04:36 Phys Exam - Physical Examination Constitutional: NAD HEENT: PERRLA Neck: supple, full ROM Respiratory: clear to auscultation bilateral Cardiovascular: RRR, no significant murmur Gastrointestinal: soft, non-tender, positive bowel sounds Musculoskeletal: no edema, pulses present Neurological: moves all 4 limbs Psychiatric: normal affect, A&O x 3 Skin: no rash, cap refill <2 seconds Dx/Plan (1) Hemorrhagic cerebrovascular accident (CVA) Code(s): I61.9 - NONTRAUMATIC INTRACEREBRAL HEMORRHAGE, UNSPECIFIED Status: Acute (2) CKD (chronic kidney disease) stage 2, GFR 60-89 ml/min Code(s): N18.2 - CHRONIC KIDNEY DISEASE, STAGE 2 (MILD) Status: Chronic (3) Chronic HFrEF (heart failure with reduced ejection fraction) Code(s): I50.22 - CHRONIC SYSTOLIC (CONGESTIVE) HEART FAILURE Status: Chronic (4) Marijuana use Code(s): F12.90 - CANNABIS USE, UNSPECIFIED, UNCOMPLICATED Status: Chronic (5) Tobacco abuse Code(s): Z72.0 - TOBACCO USE Status: Chronic (6) Hypertension Code(s): I10 - ESSENTIAL (PRIMARY) HYPERTENSION Status: Chronic Qualifiers: Hypertension type: essential hypertension Qualified Code(s): I10 - Essential (primary) hypertension - Plan Plan: 54YOM with a PMH significant for HTN, CKDII & HFrEF who presented to the ED with a CC of R-sided paresthesias that began upon waking up at 0500 and was found to have suffered a hemorrhagic CVA in the setting of uncontrolled HTN. 1. Hemorrhagic CVA * Patient presented with R-sided paresthesias & BP was elevated at 182/122 on presentation and a [id number] L-sided ICH was noted on his head CT. * Will continue all usual home meds * Cardiology consulted; appreciate recs * BP medication changes per Cardiology, increased doses of lisinopril and started on Procardia given patient requiring labetolol PRN * Neurosurgery signed off and patient is to f/u with them as an outpatient in 4 weeks for a repeat head CT * Patient to go home with HH/PT upon d/c * Will continue statin therapy but hold ASA in setting of acute bleed * Continue to monitor BP, ensure documentation is appropriate and SBP <160. If BP remains SBP <160, patient can likely be discharged home with close follow up. If BP not at goal, will need to continue to titrate medications. BP elevated last night to 181/103. He was changed from Amlodipine to Procardia. Will see how he does today. 2. HTN * Aware, see above * Cardiology consulted; appreciate recs 3. HFrEF * Aware, patient does not appear to be in acute exacerbation. * EF from TTE on last admission showed an EF of 10-15% but repeat done yesterday shows a markedly improved EF of 45-50% but LV dysfunction was still noted. * Will continue home meds & get QD weights & strict I&Os. 4. CAD * Mild CAD noted on cath during last admission. Will continue statin therapy. 5. Tobacco use * Aware, will encourage cessation. 6. Marijuana use * Aware, will encourage cessation. 7. Non-sustained VT * Patient asymptomatic * Cardiology consulted; appreciate recs Dispo: Will continue to adjust BP meds with BP goal of <160 systolic per neurosurgery. Diet: HH, include low Na VTE PPx: SCDs GI PPx: none CODE STATUS: FULL CODE\ Dispo: When BP is stable will D/C home with HH/PT Addendum - Attending - Attending Attestation Date/Time: 05/01/19 1101 I personally evaluated the patient and discussed the management with Dr. Cotto. I agree with the History, Examination, Assessment and Plan documented above with any addition or exceptions noted below. Patient doing well. Augmenting BP meds today and if good control can consider d/ c home.
[2019-05-01] MEDS: Furosemide 40 MG TAB PO SCH (08:18)
[2019-05-01] MEDS: Carvedilol 25 MG TAB PO SCH (08:18)
[2019-05-01] MEDS: hydrALAZINE 25 MG TAB PO SCH (08:19)
[2019-05-01] MEDS: Lisinopril 10 MG TAB PO SCH (08:19)
[2019-05-01] MEDS: Potassium Chloride 10 MEQ TAB PO SCH (08:19)
[2019-05-01] MEDS: Isosorbide Dinitrate 20 MG TAB PO SCH (08:19)
[2019-05-01] MEDS ORDERED: NIFEdipine XL 60 MG TAB PO SCH (09:00)
[2019-05-01 15:43] VITALS: BP 151/92
[2019-05-01 16:33] VITALS: TEMP 97.5
--- NOTE | 2019-05-02 04:03 | DIS ---
DATE OF ADMISSION: 04/26/2019 DATE OF DISCHARGE: 05/01/2019 RESIDENT: Anjum Cotto MD ADMITTING ATTENDING: Dexter Hendricks MD DISCHARGE ATTENDING: Dexter Hendricks MD CONSULTS: 1. Pulmonology, Dr. Trammell. 2. Neurosurgery, Brannon Ibanez PA-C. PROCEDURES PERFORMED: 1. CT brain on 04/26 showed left-sided 20 x 14 x 20 mm intracranial hemorrhage in the basal ganglia. 2. Chest x-ray showed no acute findings. 3. TTE on 04/26 showed EF of 45% to 50% with mild left ventricle dysfunction noted. PRIMARY DIAGNOSES: Hemorrhagic cerebrovascular accident versus hypertensive intracranial hemorrhage. SECONDARY DIAGNOSES: 1. Hypertension, heart failure with reduced ejection fraction, EF 45% to 50% in his stay. 2. Chronic kidney disease 3. Tobacco abuse. 4. Marijuana abuse. DISCHARGE MEDICATIONS: Mr. Bunch will be discharged with, 1. Atorvastatin 40 mg p.o. at bedtime. 2. Hydralazine 100 mg p.o. b.i.d. for 30 days. 3. Lisinopril 10 mg p.o. daily. 4. Nifedipine (Procardia XL) 60 mg p.o. daily. HISTORY OF PRESENT ILLNESS: Mr. Bunch is a 54-year-old male with a past medical history significant for poorly controlled hypertension, heart failure with reduced ejection fraction and chronic kidney disease, who presents to the ED with a chief complaint of right-sided paresthesias that began shortly after waking up around five today. The patient reports he woke up at 5:00 a.m. the morning he came in after taking meds and that his right arm and leg were both numb and he had trouble placing his right leg. He denies any weakness or falls as well as any associated dysarthria, headache, vision changes, or chest pain. He denies any personal or family history of CVA or IA, and denies ever having had symptoms like this before. Stated he was in his usual state of health when he went to bed yesterday. The patient in the ED was placed, started on a Cardene drip for blood pressure control after his head CT showed intracranial hemorrhage. Neurosurgery recommended outpatient followup, discharge in one month. At that time, I will get a repeat head CT. He needs to remain off aspirin, as well as any blood thinners including NSAIDs. This was discussed with him at bedside. The patient has had an improving clinical course. The patient's creatinine was 1.37 at discharge, A1c was 4.9, and renal ultrasound was within normal limits. He got renin and aldosterone and lab still pending renin and aldosterone. DISPOSITION: Stable. DISCHARGE INSTRUCTIONS: 1. Location: Home. 2. Diet: Heart healthy, low-sodium. 3. Activity: Physical therapy equipment. Activity as tolerated. 4. Followup: Followup with [facility] on 05/09/2019 and Neurosurgery in 3-4 weeks. Job ID: [id number] [facility] HOSPITALNke[facility]
== END 2019-05-01 16:58 | disposition home or self-care (01) | DRG 64 ==
LOC: ERS 05:32 → CCU 07:22 → 2SE 04-27 20:41
PROVIDERS: ADMIT Student in an Organized Health Care Education/Training Program; ATTEND Student in an Organized Health Care Education/Training Program
DX: I62.9 Nontraumatic intracranial hemorrhage, unspecified (principal); G93.6 Cerebral edema; I13.0 Hypertensive heart and chronic kidney disease with heart failure and stage 1 through stage 4 chronic kidney disease, or unspecified chronic kidney disease; I50.22 Chronic systolic (congestive) heart failure; I42.9 Cardiomyopathy, unspecified; G81.91 Hemiplegia, unspecified affecting right dominant side; I47.2 Ventricular tachycardia; F17.210 Nicotine dependence, cigarettes, uncomplicated; F12.10 Cannabis abuse, uncomplicated; I25.10 Atherosclerotic heart disease of native coronary artery without angina pectoris; E11.22 Type 2 diabetes mellitus with diabetic chronic kidney disease; N18.2 Chronic kidney disease, stage 2 (mild); Z79.82 Long term (current) use of aspirin; Z79.899 Other long term (current) drug therapy
CPT/HCPCS: 36415; 36416; 70450; 71045; 76700; 76770; 80053; 80306; 82088; 83036; 83735; 83880; 84100; 84244; 84443; 85025; 93005; 93306; 96365; 96366; 96375; J7050; J7070

== ENCOUNTER 2019-06-06 08:46 | Outpatient (CLI) | payer OTHER, SELFPAY ==
--- NOTE | 2019-06-06 09:16 | CT ---
Head CT without contrast 06/06/2019: COMPARISON: 04/26/2019 HISTORY: Stroke, intracranial hemorrhage TECHNIQUE: Axial CT imaging at 5 mm intervals from vertex through skull base without contrast FINDINGS: The imaged paranasal sinuses and mastoid air cells are well aerated. No displaced calvarial fracture noted. Prior examination demonstrated an intra-axial hemorrhage within the deep white matter posteriorly on the left. This hemorrhage has resolved. There is a minimal hypodensity and encephalomalacia in this region on the current exam. This study demonstrates no intracranial hemorrhage, midline shift, or mas s effect. IMPRESSION: Interval resolution of the previously noted intra-axial hemorrhage on the left.
== END 2019-06-06 08:47 | disposition home or self-care (01) ==
LOC: TBSIIMAG 08:46
PROVIDERS: ATTEND Neurological Surgery
DX: I61.9 Nontraumatic intracerebral hemorrhage, unspecified (principal)
CPT/HCPCS: 70450